=== PATIENT | male | born 1995 | race Caucasian/White ===

== ENCOUNTER 2018-11-04 18:44 | Emergency (ER) | payer OTHER ==
[~2018-11-04] VITALS: Ht 190.5 cm; Wt 83.8 kg
[2018-11-04] MEDS ORDERED: REME15TA PO (19:03)
[2018-11-04] MEDS ORDERED: FLUO40CA PO (19:03)
[2018-11-04 20:00] LABS: MEAN CORPUSCULAR HEMOGLOBIN 29.6 pg (27.0-33.0); MEAN CORPUSCULAR HGB CONC 34.1 g/dl (32.0-36.5); PLATELET COUNT, AUTOMATED 215 10^3/uL (150-450); RED BLOOD COUNT 5.06 10^6/uL (4.30-6.10); WHITE BLOOD COUNT 4.1 10^3/uL (4.0-10.0)
[2018-11-04 20:24] LABS: AMPHETAMINES LEVEL URINE NEGATIVE (NEGATIVE); BARBITURATES URINE NEGATIVE (NEGATIVE); BENZODIAZEPINES URINE NEGATIVE (NEGATIVE); CANNABINOIDS URINE NEGATIVE (NEGATIVE); COCAINE METABOLITE URINE NEGATIVE (NEGATIVE); METHADONE URINE NEGATIVE (NEGATIVE); OPIATES URINE NEGATIVE (NEGATIVE); PHENCYCLIDINE URINE NEGATIVE (NEGATIVE)
[2018-11-04 21:00] LABS: ACETAMINOPHEN LEVEL < 2.0 UG/ML (10.0-30.0); ALBUMIN 4.4 GM/DL (3.2-5.2); ALT/SGPT 35 U/L (12-78); BILIRUBIN,DIRECT 0.1 MG/DL (0.0-0.2); BILIRUBIN,TOTAL 0.4 MG/DL (0.2-1.0); BLOOD UREA NITROGEN 12 MG/DL (7-18); CALCIUM LEVEL 9.6 MG/DL (8.5-10.1); CARBON DIOXIDE LEVEL 26 MEQ/L (21-32); CHLORIDE LEVEL 104 MEQ/L (98-107); CREATININE FOR GFR 0.82 MG/DL (0.70-1.30); GLOMERULAR FILTRATION RATE > 60.0 (>60); GLUCOSE, FASTING 90 MG/DL (70-100); POTASSIUM SERUM 3.9 MEQ/L (3.5-5.1); SALICYLATE LEVEL < 1.7 MG/DL (5.0-30.0); SODIUM LEVEL 140 MEQ/L (136-145); THYROID STIMULATING HORMONE 0.951 uIU/ML (0.358-3.740); TOTAL PROTEIN 8.2 GM/DL (6.4-8.2)
[2018-11-05 00:57] VITALS: BP 110/59
--- NOTE | 2018-11-05 21:18 | ECGEPIP ---
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
== END 2018-11-05 01:02 ==
LOC: M ED 18:44
DX: R45.851 Suicidal ideations (principal); F17.200 Nicotine dependence, unspecified, uncomplicated
CPT/HCPCS: 80048; 80076; 80307; 84443; 85027; 93005; 99284; G0480

== ENCOUNTER 2019-01-07 13:30 | Inpatient (IN) | payer OTHER ==
[~2019-01-07] VITALS: Ht 188 cm; Wt 92.3 kg
[~2019-01-07 13:30] MED LIST: FLUO40CA PO; REME15TA PO
[2019-01-07 14:01] LABS: HEMATOCRIT 44.3 % (42.0-52.0); MEAN CORPUSCULAR HEMOGLOBIN 29.3 pg (27.0-33.0); MEAN CORPUSCULAR HGB CONC 33.9 g/dl (32.0-36.5); MEAN CORPUSCULAR VOLUME 86.5 fl (80.0-96.0); PLATELET COUNT, AUTOMATED 272 10^3/uL (150-450); RED BLOOD COUNT 5.12 10^6/uL (4.30-6.10); WHITE BLOOD COUNT 5.3 10^3/uL (4.0-10.0)
[2019-01-07] MEDS ORDERED: VITA-122 PO (14:07)
[2019-01-07] MEDS ORDERED: TRAZ-163 PO (14:07)
[2019-01-07] MEDS ORDERED: MIRT1TAB16 (14:07)
[2019-01-07] MEDS ORDERED: MIRTAZAPINE 15 MG TAB PO ONE (14:15)
[2019-01-07] MEDS ORDERED: NICOTINE 21MG/24HR 1 EA TRANSDERMAL TD ONE (14:15)
[2019-01-07 14:32] LABS: AMPHETAMINES LEVEL URINE NEGATIVE (NEGATIVE); BARBITURATES URINE NEGATIVE (NEGATIVE); BENZODIAZEPINES URINE NEGATIVE (NEGATIVE); CANNABINOIDS URINE NEGATIVE (NEGATIVE); COCAINE METABOLITE URINE NEGATIVE (NEGATIVE); METHADONE URINE NEGATIVE (NEGATIVE); OPIATES URINE NEGATIVE (NEGATIVE); PHENCYCLIDINE URINE NEGATIVE (NEGATIVE)
[2019-01-07 14:41] LABS: ACETAMINOPHEN LEVEL < 2.0 UG/ML (10.0-30.0); ALBUMIN 4.1 GM/DL (3.2-5.2); ALT/SGPT 48 U/L (12-78); BILIRUBIN,DIRECT < 0.1 MG/DL (0.0-0.2); BILIRUBIN,TOTAL 0.3 MG/DL (0.2-1.0); BLOOD UREA NITROGEN 11 MG/DL (7-18); CALCIUM LEVEL 9.4 MG/DL (8.5-10.1); CARBON DIOXIDE LEVEL 30 MEQ/L (21-32); CHLORIDE LEVEL 104 MEQ/L (98-107); CREATININE FOR GFR 0.95 MG/DL (0.70-1.30); ETHYL ALCOHOL (ETHANOL) < 0.003 % (0.000-0.010); GLOMERULAR FILTRATION RATE > 60.0 (>60); GLUCOSE, FASTING 95 MG/DL (70-100); POTASSIUM SERUM 4.1 MEQ/L (3.5-5.1); SALICYLATE LEVEL < 1.7 MG/DL (5.0-30.0); SODIUM LEVEL 139 MEQ/L (136-145); TOTAL PROTEIN 8.1 GM/DL (6.4-8.2)
[2019-01-07] MEDS ORDERED: MELA3TAB59 PO (16:58)
[2019-01-07] MEDS ORDERED: PROP20TA72 PO (16:58)
[2019-01-07] MEDS ORDERED: MIRT1TAB17 PO (16:58)
[2019-01-07] MEDS ORDERED: IBUPROFEN 400 MG TAB PO PRN (17:30)
[2019-01-07] MEDS ORDERED: traZODone 50 MG TAB PO PRN (17:30)
[2019-01-07] MEDS ORDERED: MOM 30ML SUSPENSION UDC PO PRN (17:30)
[2019-01-07] MEDS ORDERED: MAALOX 30 ML SUSP *UDC PO PRN (17:30)
[2019-01-07] MEDS: traZODone 100 MG TAB PO PRN (22:25)
[2019-01-07] MEDS: PROPRANOLOL 10 MG TAB PO PRN (22:26)
[2019-01-07 22:33] VITALS: BP 109/50
[2019-01-08 06:22] VITALS: BP 125/55
[2019-01-08] MEDS ORDERED: INFLUENZA QUADRIVALENT PF VACCINE 0.5ML SYRINGE (90686) IM ONE (09:00)
[2019-01-08] MEDS: VITAMIN D 1,000 INTERNATIONAL UNITS TABLET PO SCH (10:00)
[2019-01-08] MEDS: NICOTINE 21MG/24HR 1 EA TRANSDERMAL TD PRN (10:56)
[2019-01-08] MEDS: BACITRACIN OINT 30GM TOP SCH ×2 (12:32→20:13)
--- NOTE | 2019-01-08 13:41 | MHHPEPDOC ---
General Date Of Admission: Jan 08, 2019 Legal Status: 9.39 Chief Complaint "My doctor thought I was at risk and sent me here." History of Present Illness HISTORY OF THE PRESENT ILLNESS: Patient is a 23 -year-old , AD, male, with a history of depression and anxiety, one previous suicidal gesture 10/2018 with admission [facility] who was sent by EMS after he was seen for scheduled appt at [facility] due to thoughts of SI with plan to stab himself for the past 3-4 days. In the ED pt continued to endorse SI with plan to stab himself, denied any known triggers other than stating "I'm tired of feeling this way." Per ED when pt reported to ED 10/2018 prior to transfer to [place] report suicidal gesture and HI and has a diary of illustrations of ways to kill himself and others. Was sent from [place] to [place] for care home treatment for 6wks that he found beneficial. He reported increase alcohol use due to depression and SI in the ED. He denied HI, hallucinations, and delusions. Past Psychiatric History Previous Psychiatric Diagnosis: depression, anxiety first diagnosed in high school Previous Psychiatric Admissions: 1 admission [facility] s/p suicidal gesture 10/2018 by tying a noose around his neck but did not follow thru and attempt to hang himself. Admission [place] after [place] for 6wks for manager intermediate treatment that per [facility] records pt found helpful. Suicide Attempts:refer above, SA by hanging in [employer] Psychiatric Follow-up: [facility] Psychiatric medications: trazodone 100mg qhs, remeron 45mg qhs, inderal 20mg tid, Melatonin 3mg qhs, was on zoloft in college but stopped it to join the [employer] per [facility] records Past Medical History Medical Problems denies Head Injury: No Seizures: No Hospitalizations: No Surgeries: No Family Medical/Psychiatric HX Medical Problems noncontributory Psychiatric Disorders: Yes (mother - depressed, states nothing (meds) helped her) Addiction: No Suicide Attemps/Completions: No Addiction History denies Social History Childhood: born and raised in [place], 2 parent home, 1 younger sister, good childhood Abuse/Trauma:denies Current Living Situation: [employer] Education: GED, 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 Employment: [employer] Social Support: family Legal: kids Marital: single, never , no kids Mental Status Examination General Appearance: well groomed, appears stated age, hospital scubs/clothing Build: average, tall Demeanor: withdrawn Eye Contact: poor Activity: slowed Behavior: cooperative, loss of interests, anhedonia, withdrawn Speech: clear, low in volume, non-spontaneous Mood: depressed (very) Mood "Nothing helps just let me go" Affect: constricted, flat, congruent Thought Process: logical/linear, depressed, slow, intact, other (intact hopeless, negative cognitive distortions) Thought Content (Delusions): other (continues to want to dies even though denies he will act on it, denies HI, denies AVH) Thought Content (Other): other (hopeless that nothing will help and he'll always be depressed) Perception (Hallucinations): none reported Perception (Other): none reported Cognition (Impairment of): none reported Cognition(Intelligence Est.): average Oriented: Awake, Alert, Oriented times three Insight: poor (very) Judgment: Poor (very) Psychosis: Denies Diagnoses 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 nothing works" regarding treatment. Pt states he's tried everything and nothing works, admits he feels hopeless and wants to ." That he doesn't need to stay b/c it doesn't work "this is who I am." Pt is very withdrawn, depressed, and hopeless and states he needs to be d/c even though he wants to b/c nothing will help and denies he'll actively try to harm himself. His insight and judgement are very poor. He names a number of SSRI medications he's tried in the past that weren't helpful. Asked if he's ever taken effexor xr and denies, has never tried an antipsychotic as antidepressant augmentor before. Spoke with pt about start effexor xr for depression with abilify 5mg qhs as an augmentor, risks benefits discussed and agreeable. Endorses poor concentration, energy (no longer runs "b/c I don't feel like it), anhedonia, avolition, negative cognitive distortions, and internal irritability. Denies hallucinations, delusions. Denies HI. Feels safe here. Highly encouraged to go to groups to learn coping skills. Initial Treatment Plan 1. Patient was admitted on a 939 status. 2. Complete history was obtained. 3. With patients permission, family will be contacted and database will be expanded. 4. Patients medication regimen will be reviewed and changed accordingly. 5. Patient will be provided with protected environment. 6. Patient will be treated with individual, group, and milieu therapies. 7. Patient will receive supportive psych-education. 8. Discharge planning will commence immediately. 9. Outpatient follow-up treatment will be strongly recommended. 10. The initial treatment plan will focus initially on: * Depression. * Risk for suicide. 11. effexor xr 75mg daily, abilify 5mg qhs ESTIMATED LENGTH OF STAY: 7-10 DAYS. TIME SPENT COUNSELING AND COORDINATING INITIAL CARE: 60 minutes. Vital Signs Vital Signs Date Time Temp Pulse Resp B/P (MAP) Pulse Ox O2 Delivery O2 Flow Rate FiO2 01/08/19 06:22 98.3 73 12 125/55 (78) Room Air 01/07/19 22:33 100 Laboratory Data 24H Labs Laboratory Tests 2 01/07/19 13:43: Urine Opiates Screen NEGATIVE, Urine Methadone Screen NEGATIVE, Urine Barbiturates Screen NEGATIVE, Urine Phencyclidine Screen NEGATIVE, Urine Amphetamines Screen NEGATIVE, Urine Benzodiazepines Screen NEGATIVE, Urine Cocaine Metabolite Screen NEGATIVE, Urine Cannabinoids Screen NEGATIVE 01/07/19 13:46: Anion Gap 5L, Glomerular Filtration Rate > 60.0, Calcium Level 9.4, Total Bilirubin 0.3, Direct Bilirubin < 0.1, Aspartate Amino Transf (AST/SGOT) 30, Alanine Aminotransferase (ALT/SGPT) 48, Alkaline Phosphatase 105, Total Protein 8.1, Albumin 4.1, Albumin/Globulin Ratio 1.03, Thyroid Stimulating Hormone (TSH) 1.590, Salicylates Level < 1.7L, Acetaminophen Level < 2.0L, Ethyl Alcohol Level < 0.003 01/07/19 13:47: Nucleated Red Blood Cells % (auto) 0.0 CBC/BMP Laboratory Tests 01/07/19 13:46 01/07/19 13:47 Medications Scheduled Cholecalciferol (Vitamin D3) (Vitamin D3) 1,000 Unit Tablet, 1,000 UNIT PO DAILY, (Reported) Melatonin (Melatonin) 3 Mg Tablet, 9 MG PO QHS, (Reported) Mirtazapine (Mirtazapine) 45 Mg Tab.rapdis, 90 MG PO QHS, (Reported) Propranolol HCl (Propranolol HCl) 20 Mg Tablet, 20 MG PO TID, (Reported) Trazodone HCl (Trazodone HCl) 100 Mg Tablet, 100 MG PO QHS, (Reported) Allergies Coded Allergies: No Known Allergies (Unverified , 11/04/18) MIGUEL A ALMANZAR DO Jan 08, 2019 13:40
[2019-01-08] MEDS ORDERED: VENLAFAXINE **XR** 75MG CAPSULE PO ONE (13:45)
[2019-01-08 16:15] VITALS: BP 113/55
[2019-01-08] MEDS: traZODone 100 MG TAB PO PRN (20:16)
--- NOTE | 2019-01-08 20:36 | HPE ---
DATE OF ADMISSION: 01/07/2019 DATE OF SERVICE: 01/08/2019 CHIEF COMPLAINT: Depression. HISTORY OF PRESENT ILLNESS: 23-year-old male with a history of smoking a half of a pack per day for the past 6 months, drinks V[place]ctor [place], half of a bottle on weekends, admitted for depression to the inpatient mental health unit. He currently denies any fever or chills and admits to a 30 pound weight gain, which is unintentional. No changes in appetite. He also complains of insomnia, usually sleeps on a bench about 4 hours a day. No vomiting, abdominal pain, dysuria, urgency, frequency, upper or lower extremity weakness. No shortness of breath, chest pain, pressure, tightness, cough, diplopia, changes in vision, sore throat, ear pain, ear discharge. PAST MEDICAL HISTORY: None. PAST SURGICAL HISTORY: None. HOME MEDICATIONS: - vitamin D3 1000 units daily - propranolol 20 three times a day - trazodone 100 mg at night - melatonin 9 mg at night - mirtazapine 90 mg at night ALLERGIES: No known drug allergies. FAMILY HISTORY: Mother alive and well, age 39. Father 45, alive and well. Sister 18 years old, no medical problems. REVIEW OF SYSTEMS: As per history of present illness. 12-point system otherwise negative. PHYSICAL EXAMINATION: VITAL SIGNS: Temperature 98.3, pulse 73, respiratory rate 20, blood pressure 125/55, 100% on room air. GENERAL: Awake, alert, oriented times three. Answering questions appropriately. Anicteric sclerae. No jaundice. No use of respiratory accessory muscles. Extraocular muscles are intact. Tongue is midline. Uvula is midline. No cervical lymphadenopathy, thyromegaly or cervical lymphadenopathy. LUNGS: Clear to auscultation. No wheezing, rales or rhonchi. HEART: S1, S2. Sinus rhythm. No murmurs, rubs or gallops. ABDOMEN: Soft, nontender, nondistended. Positive bowel sounds times four quadrants. No hepatosplenomegaly or abdominal bruits. EXTREMITIES: No cyanosis, clubbing or any pitting edema. SKIN: Lacerations on the left forearm. ASSESSMENT AND PLAN: This is a 23-year-old male admitted to inpatient mental health unit with depression and self harm but cutting. Smokes cigarettes and socially drinks alcohol, half of a bottle of V[place] every weekend. 1. Active tobacco use. The patient has been given a nicotine patch. Smoking cessation counseling has been provided. 2. Suicidal ideation and depression. Managed by psychiatrist. 3. Self harm by cutting with lacerations on the left forearm. Topical bacitracin. No signs of cellulitis at this time. 4. Insomnia. Defer to psychiatrist for medications. 5. Recent weight gain. Normal TSH at 1.59. Weight loss as outpatient. MARTÍN
[2019-01-09 06:55] VITALS: BP 109/59
[2019-01-09] MEDS: VENLAFAXINE **XR** 75MG CAPSULE PO SCH (08:06)
[2019-01-09] MEDS: VITAMIN D 1,000 INTERNATIONAL UNITS TABLET PO SCH (08:06)
[2019-01-09] MEDS: BACITRACIN OINT 30GM TOP SCH ×2 (08:06→20:18)
--- NOTE | 2019-01-09 10:35 | MHIPNPDOC ---
[facility] Progress Note Progress Note DATE OF SERVICE: 01/09/19 HISTORY: Patient is a 23 -year-old , AD, male, with a history of depression and anxiety, one previous suicidal gesture 10/2018 with admission [facility] who was sent by EMS after he was seen for scheduled appt at [facility] due to thoughts of SI with plan to stab himself for the past 3-4 days. In the ED pt continued to endorse SI with plan to stab himself, denied any known triggers other than stating "I'm tired of feeling this way." Per ED when pt reported to ED 10/2018 prior to transfer to [place] report suicidal gesture and HI and has a diary of illustrations of ways to kill himself and others. Was sent from [place] to [place] for long-term treatment for 6wks that he found beneficial. He reported increase alcohol use due to depression and SI in the ED. He denied HI, hallucinations, and delusions. Pt seen at states he's here b/c "I told my outpatient provider that last Monday I going to slit my wrist b/c I'm done with everything... nothing works" regarding treatment. Pt states he's tried everything and nothing works, admits he feels hopeless and wants to ." That he doesn't need to stay b/c it doesn't work "this is who I am." Pt is very withdrawn, depressed, and hopeless and states he needs to be d/c even though he wants to b/c nothing will help and denies he'll actively try to harm himself. His insight and judgement are very poor. He names a number of SSRI medications he's tried in the past that weren't helpful. Asked if he's ever taken effexor xr and denies, has never tried an antipsychotic as antidepressant augmentor before. Spoke with pt about start effexor xr for depression with abilify 5mg qhs as an augmentor, risks benefits discussed and agreeable. Endorses poor concentration, energy (no longer runs "b/c I don't feel like it), anhedonia, avolition, negative cognitive distortions, and internal irritability. Denies hallucinations, delusions. Denies HI. Feels safe here. Highly encouraged to go to groups to learn coping skills. VITAL SIGNS: See below. NEW TEST RESULTS: See below. CURRENT MEDICATIONS: See below. MENTAL STATUS EXAMINATION: No change General Appearance: well groomed, appears stated age, hospital scrubs/clothing Build: average, tall Demeanor: withdrawn Eye Contact: poor Activity: slowed Behavior: cooperative, loss of interests, anhedonia, withdrawn Speech: clear, low in volume, non-spontaneous Mood: depressed (very) Mood "Nothing helps just let me go" Affect: constricted, flat, congruent Thought Process: logical/linear, depressed, slow, intact, other (intact hopeless, negative cognitive distortions) Thought Content (Delusions): other (continues to want to dies even though denies he will act on it, denies HI, denies AVH) Thought Content (Other): other (hopeless that nothing will help and he'll always be depressed) Perception (Hallucinations): none reported Perception (Other): none reported Cognition (Impairment of): none reported Cognition(Intelligence Est.): average Oriented: Awake, Alert, Oriented times three Insight: poor (very) Judgment: Poor (very) Psychosis: Denies DIAGNOSES: 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 Denies that he's attending groups as "they were playing games" and encouraged to go to all of them for improvement in mood and anhedonia (experience los), prevent isolation and did not appear like he wanted to go at all trying to get out of going. 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 Per d/c todd pt has told his mother that he planned to commit suicide in near future after a big cross country race and that his Angel found a huge knife in his barracks room that pt had but stated he wasn't going to use to harm himself b/c it'd been blessed with holy water that would prevent him from going to hell. States he's tolerating his meds and will continue to wait for improvement in symptoms with continued use. Per d/c todd pt was on abilify at [place] that appeared beneficial but was discontinued prior d/c for unknown reason. Pt continues to appear to want to and ECT may be very beneficial for him as it is only effective treatment for irretractable SI. [facility] to look into referring pt to ECT. He denies HI, hallucinations, delusions. Pt feels safe here. MANAGEMENT PLAN: medications effexor xr 75mg daily abilify 5mg qhs TIME SPENT: 30 minutes. Vital Signs Vital Signs Date Time Temp Pulse Resp B/P (MAP) Pulse Ox O2 Delivery O2 Flow Rate FiO2 01/09/19 06:55 99.3 81 14 109/59 (76) 01/08/19 06:22 Room Air 01/07/19 22:33 100 Current Medications Current Medications Medications (Trade) Dose Ordered Sig/Stephanie Route PRN Reason Start Time Stop Time Status Last Admin Dose Admin Al Hydrox/Mg Hydrox/Simethicone (Mylanta) 30 ml Q4HP PRN PO HEARTBURN/INDIGESTION 01/07/19 17:30 Aripiprazole (AbiLIFY) 5 mg QHS PO 01/08/19 21:00 01/08/19 20:13 Bacitracin (Bacitracin Oint) X5 DAYS TO LEFT ARM LACERATIONS. BID TOP 01/08/19 09:00 01/12/19 21:01 01/09/19 08:06 Home Med (Med Rec Complete!) ASDIRECTED XX 01/07/19 17:00 01/07/19 17:01 DC Ibuprofen (Advil) 400 mg Q6HP PRN PO PAIN 01/07/19 17:30 Magnesium Hydroxide (Milk Of Magnesia) 30 ml DAILYPRN PRN PO CONSTIPATION 01/07/19 17:30 Nicotine (Nicoderm Cq 21mg) 1 patch DAILYPRN PRN TD NICOTINE WITHDRAWAL 01/08/19 09:00 01/08/19 10:56 Propranolol HCl (Inderal) 10 mg Q8HP PRN PO ANXIETY 01/07/19 20:45 01/07/19 22:26 Trazodone HCl (Desyrel) 50 mg QHSP PRN PO INSOMNIA 01/07/19 17:30 01/07/19 20:36 DC Trazodone HCl (Desyrel) 100 mg QHSP PRN PO INSOMNIA 01/07/19 20:45 01/08/19 20:16 Venlafaxine HCl (Effexor Xr) 75 mg DAILY PO 01/09/19 09:00 01/09/19 08:06 Vitamin D (Vitamin D) 1,000 units DAILY PO 01/08/19 09:00 01/09/19 08:06 Allergies Coded Allergies: No Known Allergies (Unverified , 11/04/18) MIGUEL A ALMANZAR DO Jan 09, 2019 10:35 am
[2019-01-09 16:44] VITALS: BP 133/57
[2019-01-09] MEDS: traZODone 100 MG TAB PO PRN (20:17)
[2019-01-10 05:53] VITALS: BP 117/54
[2019-01-10] MEDS: NICOTINE 21MG/24HR 1 EA TRANSDERMAL TD PRN (06:51)
[2019-01-10] MEDS: VENLAFAXINE **XR** 75MG CAPSULE PO SCH (08:34)
[2019-01-10] MEDS: BACITRACIN OINT 30GM TOP SCH ×2 (08:34→20:27)
[2019-01-10] MEDS: VITAMIN D 1,000 INTERNATIONAL UNITS TABLET PO SCH (08:34)
--- NOTE | 2019-01-10 09:50 | MHIPNPDOC ---
[facility] Progress Note Progress Note Inpatient Progress Note Carmelo Sanchez MRN: N/A Date of : N/A Date of Service: 01/10/2019 History of Present Illness 23-year-old man with a history of suicide attempts, overdoses who had presented to [facility] after reporting suicidal ideation and was admitted out of an abundance of caution. Interval History The patient is met with today. He appears sad that he is here on Thanksgiving and asked if can be discharged. I explained to the patient that that would not be possible as he is currently under the care of his primary provider, Dr. Hu. He reports his depression has been improving and that he is unsure as to why he is still hear. No major behavioral problems overnight and no problems attending the treatment, going to groups regularly. Review Of Systems General: Denies fever or appetite changes Cardiovascular: Denies Chest pain or palpations GI: Denies Nausea, vomiting, or bowel changes Respiratory: Denies shortness of breath or cough Neuro: Denies dizziness, tremors Derm: Denies any rashes or pruritus : Denies any dysuria or urinary problems MSK: Denies any muscle tightness or stiffness HEENT: Denies any vision changes or headaches Heme/Lymph: denies any bruising or bleeding Endo: denies any cold/heat intolerance or water intake changes Psychotherapy None on this visit. Vital Signs Reviewed. Mental Status Examination General: Well dressed with good hygiene Speech: Spontaneous and fluid Thought processes: Linear and logical MSK: Smooth and coordinated gait, no signs of tremors or involuntary orofacial movements Thought content: Future orientated Abstract reasoning, and computation: Intact Description of associations: Intact Description of abnormal or psychotic thoughts: Denies any suicidal or homicidal ideation. Denies any auditory or visual hallucinations. Does not appear to be responding to internal stimuli. Does not appear to be endorsing any bizarre or paranoid ideation. Judgment: fair Insight: fair Orientation: Alert and orientated 3 Cognition: Grossly normal Recent and remote memory: Intact Attention span and concentration: Intact Fund of knowledge: Adequate Mood: "okay" Affect: Euthymic with a full range Diagnoses MDD, severe without psychosis. Assessment and Plan MDD: Continue current medications. Disposition Patient will need a further inpatient admission for continued safety planning and disposition. Time Spent 50 minutes [id number]. Vital Signs Vital Signs Date Time Temp Pulse Resp B/P (MAP) Pulse Ox O2 Delivery O2 Flow Rate FiO2 01/10/19 05:53 98.1 78 18 117/54 (75) 01/09/19 16:44 97 Room Air Current Medications Current Medications Medications (Trade) Dose Ordered Sig/Stephanie Route PRN Reason Start Time Stop Time Status Last Admin Dose Admin Al Hydrox/Mg Hydrox/Simethicone (Mylanta) 30 ml Q4HP PRN PO HEARTBURN/INDIGESTION 01/07/19 17:30 Aripiprazole (AbiLIFY) 5 mg QHS PO 01/08/19 21:00 01/09/19 20:17 Bacitracin (Bacitracin Oint) X5 DAYS TO LEFT ARM LACERATIONS. BID TOP 01/08/19 09:00 01/12/19 21:01 01/10/19 08:34 Home Med (Med Rec Complete!) ASDIRECTED XX 01/07/19 17:00 01/07/19 17:01 DC Ibuprofen (Advil) 400 mg Q6HP PRN PO PAIN 01/07/19 17:30 Magnesium Hydroxide (Milk Of Magnesia) 30 ml DAILYPRN PRN PO CONSTIPATION 01/07/19 17:30 Nicotine (Nicoderm Cq 21mg) 1 patch DAILYPRN PRN TD NICOTINE WITHDRAWAL 01/08/19 09:00 01/10/19 06:51 Propranolol HCl (Inderal) 10 mg Q8HP PRN PO ANXIETY 01/07/19 20:45 01/07/19 22:26 Trazodone HCl (Desyrel) 50 mg QHSP PRN PO INSOMNIA 01/07/19 17:30 01/07/19 20:36 DC Trazodone HCl (Desyrel) 100 mg QHSP PRN PO INSOMNIA 01/07/19 20:45 01/09/19 20:17 Venlafaxine HCl (Effexor Xr) 75 mg DAILY PO 01/09/19 09:00 01/10/19 08:34 Vitamin D (Vitamin D) 1,000 units DAILY PO 01/08/19 09:00 01/10/19 08:34 Allergies Coded Allergies: No Known Allergies (Unverified , 11/04/18) MARK LITTLE DO Jan 10, 2019 09:50
[2019-01-10 16:11] VITALS: BP 133/71
[2019-01-10] MEDS: traZODone 100 MG TAB PO PRN (20:05)
[2019-01-11 06:31] VITALS: BP 128/69
[2019-01-11] MEDS: NICOTINE 21MG/24HR 1 EA TRANSDERMAL TD PRN (06:35)
[2019-01-11] MEDS: BACITRACIN OINT 30GM TOP SCH ×2 (08:26→20:00)
[2019-01-11] MEDS: VITAMIN D 1,000 INTERNATIONAL UNITS TABLET PO SCH (08:27)
[2019-01-11] MEDS: VENLAFAXINE **XR** 75MG CAPSULE PO SCH (08:27)
--- NOTE | 2019-01-11 10:03 | MHIPNPDOC ---
[facility] Progress Note Progress Note DATE OF SERVICE: 01/11/19 HISTORY: Patient is a 23 -year-old , AD, male, with a history of depression and anxiety, one previous suicidal gesture 10/2018 with admission [facility] who was sent by EMS after he was seen for scheduled appt at [facility] due to thoughts of SI with plan to stab himself for the past 3-4 days. In the ED pt continued to endorse SI with plan to stab himself, denied any known triggers other than stating "I'm tired of feeling this way." Per ED when pt reported to ED 10/2018 prior to transfer to [place] report suicidal gesture and HI and has a diary of illustrations of ways to kill himself and others. Was sent from [place] to [place] for long term treatment for 6wks that he found beneficial. He reported increase alcohol use due to depression and SI in the ED. He denied HI, hallucinations, and delusions. Pt seen at states he's here b/c "I told my outpatient provider that last Monday I going to slit my wrist b/c I'm done with everything... nothing works" regarding treatment. Pt states he's tried everything and nothing works, admits he feels hopeless and wants to ." That he doesn't need to stay b/c it doesn't work "this is who I am." Pt is very withdrawn, depressed, and hopeless and states he needs to be d/c even though he wants to b/c nothing will help and denies he'll actively try to harm himself. His insight and judgement are very poor. He names a number of SSRI medications he's tried in the past that weren't helpful. Asked if he's ever taken effexor xr and denies, has never tried an antipsychotic as antidepressant augmentor before. Spoke with pt about start effexor xr for depression with abilify 5mg qhs as an augmentor, risks benefits discussed and agreeable. Endorses poor concentration, energy (no longer runs "b/c I don't feel like it), anhedonia, avolition, negative cognitive distortions, and internal irritability. Denies hallucinations, delusions. Denies HI. Feels safe here. Highly encouraged to go to groups to learn coping skills. VITAL SIGNS: See below. NEW TEST RESULTS: See below. CURRENT MEDICATIONS: See below. MENTAL STATUS EXAMINATION: No change General Appearance: well groomed, appears stated age, hospital scrubs/clothing Build: average, tall Demeanor: withdrawn Eye Contact: poor Activity: slowed Behavior: cooperative, loss of interests, anhedonia, withdrawn Speech: clear, low in volume, non-spontaneous Mood: depressed (very) Mood "Nothing helps just let me go" Affect: constricted, flat, congruent Thought Process: logical/linear, depressed, slow, intact, other (intact hopeless, negative cognitive distortions) Thought Content (Delusions): other (continues to want to dies even though denies he will act on it, denies HI, denies AVH) Thought Content (Other): other (hopeless that nothing will help and he'll always be depressed) Perception (Hallucinations): none reported Perception (Other): none reported Cognition (Impairment of): none reported Cognition(Intelligence Est.): average Oriented: Awake, Alert, Oriented times three Insight: poor (very) Judgment: Poor (very) Psychosis: Denies DIAGNOSES: 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 Is attending groups now but admits he doesn't like them. Encouraged to continue to go though to prevent isolation and that overtime they should be helpful to him. Asked him about his futures plans and stated he want to be a seat cover cutter as it's low stress as he working toward becoming an Exorcist. Appeared to not know that exorcists are Furniture Repairer and that to become a medical reviewer he would need to go to school to become a medical reviewer. Appears to either have just thought of being an exorcist here or maybe related with fascination of life after or something he is not stating, or just a imaginary idea. Per d/c store planner pt has told his mother that he planned to commit suicide in near future after a big cross country race and that his Angel found a huge knife in his barracks room that pt had but stated he wasn't going to use to harm himself b/c it'd been blessed with holy water that would prevent him from going to hell. States he's tolerating his meds and will continue to wait for improvement in symptoms with continued use. Per d/c store planner pt was on abilify at [place] that appeared beneficial but was discontinued prior d/c for unknown reason. Pt continues to appear to want to and ECT may be very beneficial for him as it is only effective treatment for irretractable SI. [facility] to look into referring pt to ECT. He denies HI, hallucinations, delusions. Pt feels safe here. MANAGEMENT PLAN: increase effexor xr medications effexor xr 150mg daily abilify 5mg qhs TIME SPENT: 30 minutes. Vital Signs Vital Signs Date Time Temp Pulse Resp B/P (MAP) Pulse Ox O2 Delivery O2 Flow Rate FiO2 01/11/19 06:31 99.2 81 18 128/69 (88) 01/09/19 16:44 97 Room Air Current Medications Current Medications Medications (Trade) Dose Ordered Sig/Stephanie Route PRN Reason Start Time Stop Time Status Last Admin Dose Admin Al Hydrox/Mg Hydrox/Simethicone (Mylanta) 30 ml Q4HP PRN PO HEARTBURN/INDIGESTION 01/07/19 17:30 Aripiprazole (AbiLIFY) 5 mg QHS PO 01/08/19 21:00 01/10/19 20:05 Bacitracin (Bacitracin Oint) X5 DAYS TO LEFT ARM LACERATIONS. BID TOP 01/08/19 09:00 01/12/19 21:01 01/10/19 08:34 Home Med (Med Rec Complete!) ASDIRECTED XX 01/07/19 17:00 01/07/19 17:01 DC Ibuprofen (Advil) 400 mg Q6HP PRN PO PAIN 01/07/19 17:30 Magnesium Hydroxide (Milk Of Magnesia) 30 ml DAILYPRN PRN PO CONSTIPATION 01/07/19 17:30 Nicotine (Nicoderm Cq 21mg) 1 patch DAILYPRN PRN TD NICOTINE WITHDRAWAL 01/08/19 09:00 01/11/19 06:35 Propranolol HCl (Inderal) 10 mg Q8HP PRN PO ANXIETY 01/07/19 20:45 01/07/19 22:26 Trazodone HCl (Desyrel) 50 mg QHSP PRN PO INSOMNIA 01/07/19 17:30 01/07/19 20:36 DC Trazodone HCl (Desyrel) 100 mg QHSP PRN PO INSOMNIA 01/07/19 20:45 01/10/19 20:05 Venlafaxine HCl (Effexor Xr) 75 mg DAILY PO 01/09/19 09:00 01/11/19 08:27 Vitamin D (Vitamin D) 1,000 units DAILY PO 01/08/19 09:00 01/11/19 08:27 Allergies Coded Allergies: No Known Allergies (Unverified , 11/04/18) MIGUEL A ALMANZAR DO Jan 11, 2019 9:15 am
[2019-01-11] MEDS ORDERED: VENLAFAXINE **XR** 75MG CAPSULE PO ONE (10:15)
[2019-01-11] MEDS ORDERED: hydrOXYzine 25 MG TAB PO PRN (13:00)
[2019-01-11] MEDS: PROPRANOLOL 10 MG TAB PO PRN (14:50)
[2019-01-11 16:39] VITALS: BP 130/64
[2019-01-11] MEDS: traZODone 100 MG TAB PO PRN (20:00)
[2019-01-12 05:46] VITALS: BP 113/55
[2019-01-12] MEDS: NICOTINE 21MG/24HR 1 EA TRANSDERMAL TD PRN (08:30)
[2019-01-12] MEDS: VITAMIN D 1,000 INTERNATIONAL UNITS TABLET PO SCH (08:30)
[2019-01-12] MEDS: VENLAFAXINE **XR** 75MG CAPSULE PO SCH (08:30)
[2019-01-12] MEDS: BACITRACIN OINT 30GM TOP SCH ×2 (08:32→20:20)
[2019-01-12 16:16] VITALS: BP 125/68
[2019-01-12] MEDS: traZODone 100 MG TAB PO PRN (20:21)
[2019-01-13 05:59] VITALS: BP 132/67
[2019-01-13] MEDS: VENLAFAXINE **XR** 75MG CAPSULE PO SCH (08:16)
[2019-01-13] MEDS: VITAMIN D 1,000 INTERNATIONAL UNITS TABLET PO SCH (08:17)
[2019-01-13] MEDS: NICOTINE 21MG/24HR 1 EA TRANSDERMAL TD PRN (08:17)
[2019-01-13] MEDS: PROPRANOLOL 10 MG TAB PO PRN (12:28)
[2019-01-13 15:37] VITALS: BP 128/58
[2019-01-13] MEDS: traZODone 100 MG TAB PO PRN (20:29)
[2019-01-14 06:22] VITALS: BP 109/52
[2019-01-14] MEDS: VENLAFAXINE **XR** 75MG CAPSULE PO SCH (08:01)
[2019-01-14] MEDS: NICOTINE 21MG/24HR 1 EA TRANSDERMAL TD PRN (08:01)
[2019-01-14] MEDS: VITAMIN D 1,000 INTERNATIONAL UNITS TABLET PO SCH (08:01)
--- NOTE | 2019-01-14 10:33 | MHIPNPDOC ---
[facility] Progress Note Progress Note DATE OF SERVICE: 01/14/19 HISTORY: Patient is a 23 -year-old , AD, male, with a history of depression and anxiety, one previous suicidal gesture 10/2018 with admission [facility] who was sent by EMS after he was seen for scheduled appt at [facility] due to thoughts of SI with plan to stab himself for the past 3-4 days. In the ED pt continued to endorse SI with plan to stab himself, denied any known triggers other than stating "I'm tired of feeling this way." Per ED when pt reported to ED 10/2018 prior to transfer to [place] report suicidal gesture and HI and has a diary of illustrations of ways to kill himself and others. Was sent from [place] to [place] [facility] 6w[facility] that he found beneficial. He reported increase alcohol use due to depression and SI in the ED. He denied HI, hallucinations, and delusions. Pt seen at states he's here b/c "I told my outpatient provider that last Monday I going to slit my wrist b/c I'm done with everything... nothing works" regarding treatment. Pt states he's tried everything and nothing works, admits he feels hopeless and wants to ." That he doesn't need to stay b/c it doesn't work "this is who I am." Pt is very withdrawn, depressed, and hopeless and states he needs to be d/c even though he wants to b/c nothing will help and denies he'll actively try to harm himself. His insight and judgement are very poor. He names a number of SSRI medications he's tried in the past that weren't helpful. Asked if he's ever taken effexor xr and denies, has never tried an antipsychotic as antidepressant augmentor before. Spoke with pt about start effexor xr for depression with abilify 5mg qhs as an augmentor, risks benefits discussed and agreeable. Endorses poor concentration, energy (no longer runs "b/c I don't feel like it), anhedonia, avolition, negative cognitive distortions, and internal irritability. Denies hallucinations, delusions. Denies HI. Feels safe here. Highly encouraged to go to groups to learn coping skills. VITAL SIGNS: See below. NEW TEST RESULTS: See below. CURRENT MEDICATIONS: See below. MENTAL STATUS EXAMINATION: No change General Appearance: well groomed, appears stated age, hospital scrubs/clothing Build: average, tall Demeanor: very anxious and fidgety Eye Contact: poor Activity: slowed Behavior: cooperative, very anxious Speech: clear, low in volume, non-spontaneous Mood: depressed (very), very anxious Mood "They're aren't any groups today... it's making me anxious" Affect: very anxious, improved range, congruent Thought Process: logical/linear, very depressed, slow, intact, other (intact hopeless, negative cognitive distortions, believes he deserves to be punished b/c he's a horrible person) Thought Content (Delusions): other (continues to want to dies even though denies he will act on it, denies HI, denies AVH) Thought Content (Other): other (hopeless that nothing will help and he'll always be depressed) Perception (Hallucinations): none reported Perception (Other): none reported Cognition (Impairment of): none reported Cognition(Intelligence Est.): average Oriented: Awake, Alert, Oriented times three Insight: poor (very) Judgment: Poor (very) Psychosis: Denies DIAGNOSES: Major Depressive D/O severe recurrent with out psychotic features (Unipolar type) ASSESSMENT:Pt seen appearing extremely anxious due to there not being any groups today. Admits that it is very anxiety provoking for him when daily activities change spontaneously. Asking for paper and a sharpie marker to draw as he states he enjoys drawing and it aids his anxiety. States he draws angels and demons. Per d/c operations planner, pt reported to self harm thru whipping himself and cutting himself due to guilt like feelings related to his ex-girlfriend's ex- boyfriend killing himself b/c she was cheating on her ex-boyfriend with the pt who blames himself. Pt continues to have very negative cognitive distortions of himself and believes he is a horrible person that needs to be punished. He's very religiously focused in his beliefs as to why he must punish himself. Appears to have shown some range improvement though with medications and groups and is having more future oriented thoughts, now wanting to be a safety aid when he gets out of the . Monday he wanted to be an exorcist. Per d/c operations planner pt has told his mother that he planned to commit suicide in near future after a big cross country race and that his Angel found a huge knife in his barracks room that pt had but stated he wasn't going to use to harm himself b/c it'd been blessed with holy water that would prevent him from going to hell. States he's tolerating his meds and will continue to wait for improvement in symptoms with continued use. Per d/c operations planner pt was on abilify at [place] that appeared beneficial but was discontinued prior d/c for unknown reason. Recommend chcf treatment at [place] over ECT as pt is showing some improvement in symptoms with his current meds and therapy. He denies HI, hallucinations, delusions. Pt feels safe here. MANAGEMENT PLAN: start vistaril prn medications effexor xr 150mg daily abilify 5mg qhs vistaril 50mg q6hr prn anxiety TIME SPENT: 30 minutes. Vital Signs Vital Signs Date Time Temp Pulse Resp B/P (MAP) Pulse Ox O2 Delivery O2 Flow Rate FiO2 01/14/19 06:22 98.6 94 16 109/52 (71) Room Air 01/09/19 16:44 97 Current Medications Current Medications Medications (Trade) Dose Ordered Sig/Stephanie Route PRN Reason Start Time Stop Time Status Last Admin Dose Admin Al Hydrox/Mg Hydrox/Simethicone (Mylanta) 30 ml Q4HP PRN PO HEARTBURN/INDIGESTION 01/07/19 17:30 Aripiprazole (AbiLIFY) 5 mg QHS PO 01/08/19 21:00 01/13/19 20:30 Bacitracin (Bacitracin Oint) X5 DAYS TO LEFT ARM LACERATIONS. BID TOP 01/08/19 09:00 01/12/19 21:01 DC 01/10/19 08:34 Home Med (Med Rec Complete!) ASDIRECTED XX 01/07/19 17:00 01/07/19 17:01 DC Hydroxyzine HCl (Atarax) 25 mg Q4HP PRN PO ANXIETY/AGITATION 01/11/19 13:00 01/14/19 08:01 Ibuprofen (Advil) 400 mg Q6HP PRN PO PAIN 01/07/19 17:30 Magnesium Hydroxide (Milk Of Magnesia) 30 ml DAILYPRN PRN PO CONSTIPATION 01/07/19 17:30 Nicotine (Nicoderm Cq 21mg) 1 patch DAILYPRN PRN TD NICOTINE WITHDRAWAL 01/08/19 09:00 01/14/19 08:01 Propranolol HCl (Inderal) 10 mg Q8HP PRN PO ANXIETY 01/07/19 20:45 01/13/19 12:28 Trazodone HCl (Desyrel) 50 mg QHSP PRN PO INSOMNIA 01/07/19 17:30 01/07/19 20:36 DC Trazodone HCl (Desyrel) 100 mg QHSP PRN PO INSOMNIA 01/07/19 20:45 01/13/19 20:29 Venlafaxine HCl (Effexor Xr) 75 mg DAILY PO 01/09/19 09:00 01/11/19 10:04 DC 01/11/19 08:27 Venlafaxine HCl (Effexor Xr) 150 mg DAILY PO 01/12/19 09:00 01/14/19 08:01 Vitamin D (Vitamin D) 1,000 units DAILY PO 01/08/19 09:00 01/14/19 08:01 Allergies Coded Allergies: No Known Allergies (Unverified , 11/04/18) MIGUEL A ALMANZAR DO Jan 14, 2019 9:54 am
[2019-01-14] MEDS ORDERED: hydrOXYzine 50 MG TAB PO ONE (12:00)
[2019-01-14 17:44] VITALS: BP 16/73
[2019-01-14] MEDS: hydrOXYzine 50 MG TAB PO PRN (20:01)
[2019-01-14] MEDS: traZODone 100 MG TAB PO PRN (20:01)
[2019-01-14] MEDS ORDERED: MIRTAZAPINE 15 MG TAB PO SCH (21:00)
[2019-01-15 06:22] VITALS: BP 111/58
[2019-01-15] MEDS: NICOTINE 21MG/24HR 1 EA TRANSDERMAL TD PRN (08:11)
[2019-01-15] MEDS: VENLAFAXINE **XR** 75MG CAPSULE PO SCH (08:12)
[2019-01-15] MEDS: VITAMIN D 1,000 INTERNATIONAL UNITS TABLET PO SCH (08:12)
--- NOTE | 2019-01-15 09:35 | MHIPNPDOC ---
[facility] Progress Note Progress Note DATE OF SERVICE: 01/15/19 HISTORY: Patient is a 23 -year-old , AD, male, with a history of depression and anxiety, one previous suicidal gesture 10/2018 with admission [facility] who was sent by EMS after he was seen for scheduled appt at [facility] due to thoughts of SI with plan to stab himself for the past 3-4 days. In the ED pt continued to endorse SI with plan to stab himself, denied any known triggers other than stating "I'm tired of feeling this way." Per ED when pt reported to ED 10/2018 prior to transfer to [place] report suicidal gesture and HI and has a diary of illustrations of ways to kill himself and others. Was sent from [place] to [place] for detention treatment for 6wks that he found beneficial. He reported increase alcohol use due to depression and SI in the ED. He denied HI, hallucinations, and delusions. Pt seen at states he's here b/c "I told my outpatient provider that last Monday I going to slit my wrist b/c I'm done with everything... nothing works" regarding treatment. Pt states he's tried everything and nothing works, admits he feels hopeless and wants to ." That he doesn't need to stay b/c it doesn't work "this is who I am." Pt is very withdrawn, depressed, and hopeless and states he needs to be d/c even though he wants to b/c nothing will help and denies he'll actively try to harm himself. His insight and judgement are very poor. He names a number of SSRI medications he's tried in the past that weren't helpful. Asked if he's ever taken effexor xr and denies, has never tried an antipsychotic as antidepressant augmentor before. Spoke with pt about start effexor xr for depression with abilify 5mg qhs as an augmentor, risks benefits discussed and agreeable. Endorses poor concentration, energy (no longer runs "b/c I don't feel like it), anhedonia, avolition, negative cognitive distortions, and internal irritability. Denies hallucinations, delusions. Denies HI. Feels safe here. Highly encouraged to go to groups to learn coping skills. VITAL SIGNS: See below. NEW TEST RESULTS: See below. CURRENT MEDICATIONS: See below. MENTAL STATUS EXAMINATION: No change General Appearance: well groomed, appears stated age, hospital scrubs/clothing Build: average, tall Demeanor: anxious and fidgety Eye Contact: poor Activity: more average, anxious Behavior: cooperative, anxious Speech: clear, low in volume, non-spontaneous Mood: depressed (very), very anxious Mood "ok" Affect: anxious, improved range, congruent Thought Process: logical/linear, very depressed, intact, other (intact hopeless, negative cognitive distortions, believes he deserves to be punished b/c he's a horrible person) Thought Content (Delusions): other (continues to want to even though denies he will act on it, denies HI, denies AVH) Thought Content (Other): other (hopeless that nothing will help and he'll always be depressed) Perception (Hallucinations): none reported Perception (Other): none reported Cognition (Impairment of): none reported Cognition(Intelligence Est.): average Oriented: Awake, Alert, Oriented times three Insight: poor (very) Judgment: Poor (very) Psychosis: Denies DIAGNOSES: 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 States he slept better last night with increase in trazodone and start of a remeron but did wake up at 2am unable to fall back asleep. He's agreeable to increasing his remeron that he states is beneficial and he's tolerating it well (per d/c airport planner had been on remeron 45mg qhs at [place] previously). Per d/c airport planner, pt reported to self harm thru whipping himself and cutting himself due to guilt like feelings related to his ex-girlfriend's ex-boyfriend killing himself b/c she was cheating on her ex- boyfriend with the pt who blames himself. Pt continues to have very negative cognitive distortions of himself and believes he is a horrible person that needs to be punished. He's very religiously focused in his beliefs as to why he must punish himself. Continues to appear to show some range improvement with medications and groups and is having more future oriented thoughts, now wanting to be a safety aid when he gets out of the . Monday he wanted to be an exorcist. Per d/c airport planner pt has told his mother that he planned to commit suicide in near future after a big cross country race and that his Angel found a huge knife in his barracks room that pt had but stated he wasn't going to use to harm himself b/c it'd been blessed with holy water that would prevent him from going to hell. States he's tolerating his meds and will continue to wait for improvement in symptoms with continued use. Per d/c airport planner pt was on abilify at [place] that appeared beneficial but was discontinued prior d/c for unknown reason. Spoke with pt's outpatient psychiatrist at [facility] and she stated they are preparing to send pt to [facility] in [place], [place] for fdc treatment in the IOP program where pt also has the possibilities of having ECT, TMS, or ketamine as possible additional treatments for his severe depression and thoughts of wanting to be . As of now, awaiting bed date for [facility]. Pt is showing some improvement in symptoms with his current meds and therapy. He denies HI, hallucinations, delusions. Pt feels safe here. MANAGEMENT PLAN: increase remeron medications effexor xr 150mg daily abilify 5mg qhs vistaril 50mg q6hr prn anxiety trazodone 100mg qhs prn insomnia remeron 30mg qhs TIME SPENT: 30 minutes. Vital Signs Vital Signs Date Time Temp Pulse Resp B/P (MAP) Pulse Ox O2 Delivery O2 Flow Rate FiO2 01/15/19 06:22 97.4 72 16 111/58 (75) Room Air 01/09/19 16:44 97 Current Medications Current Medications Medications (Trade) Dose Ordered Sig/Stephanie Route PRN Reason Start Time Stop Time Status Last Admin Dose Admin Al Hydrox/Mg Hydrox/Simethicone (Mylanta) 30 ml Q4HP PRN PO HEARTBURN/INDIGESTION 01/07/19 17:30 Aripiprazole (AbiLIFY) 5 mg QHS PO 01/08/19 21:00 01/14/19 20:01 Bacitracin (Bacitracin Oint) X5 DAYS TO LEFT ARM LACERATIONS. BID TOP 01/08/19 09:00 01/12/19 21:01 DC 01/10/19 08:34 Home Med (Med Rec Complete!) ASDIRECTED XX 01/07/19 17:00 01/07/19 17:01 DC Hydroxyzine HCl (Atarax) 25 mg Q4HP PRN PO ANXIETY/AGITATION 01/11/19 13:00 01/14/19 10:31 DC 01/14/19 08:01 Hydroxyzine HCl (Atarax) 50 mg Q6HP PRN PO ANXIETY 01/14/19 11:00 01/14/19 20:01 Ibuprofen (Advil) 400 mg Q6HP PRN PO PAIN 01/07/19 17:30 Magnesium Hydroxide (Milk Of Magnesia) 30 ml DAILYPRN PRN PO CONSTIPATION 01/07/19 17:30 Mirtazapine (Remeron) 15 mg QHS PO 01/14/19 21:00 01/14/19 20:01 Nicotine (Nicoderm Cq 21mg) 1 patch DAILYPRN PRN TD NICOTINE WITHDRAWAL 01/08/19 09:00 01/15/19 08:11 Propranolol HCl (Inderal) 10 mg Q8HP PRN PO ANXIETY 01/07/19 20:45 01/13/19 12:28 Trazodone HCl (Desyrel) 50 mg QHSP PRN PO INSOMNIA 01/07/19 17:30 01/07/19 20:36 DC Trazodone HCl (Desyrel) 100 mg QHSP PRN PO INSOMNIA 01/07/19 20:45 01/14/19 20:01 Venlafaxine HCl (Effexor Xr) 75 mg DAILY PO 01/09/19 09:00 01/11/19 10:04 DC 01/11/19 08:27 Venlafaxine HCl (Effexor Xr) 150 mg DAILY PO 01/12/19 09:00 01/15/19 08:12 Vitamin D (Vitamin D) 1,000 units DAILY PO 01/08/19 09:00 01/15/19 08:12 Allergies Coded Allergies: No Known Allergies (Unverified , 11/04/18) MIGUEL A ALMANZAR DO Jan 15, 2019 9:35 am
[2019-01-15] MEDS: hydrOXYzine 50 MG TAB PO PRN (12:15)
[2019-01-15 17:05] VITALS: BP 152/70
[2019-01-15] MEDS: traZODone 100 MG TAB PO PRN (20:03)
[2019-01-15] MEDS: MIRTAZAPINE 15 MG TAB PO SCH (20:04)
[2019-01-16 06:05] VITALS: BP 121/69
[2019-01-16] MEDS: VENLAFAXINE **XR** 75MG CAPSULE PO SCH (08:08)
[2019-01-16] MEDS: VITAMIN D 1,000 INTERNATIONAL UNITS TABLET PO SCH (08:08)
--- NOTE | 2019-01-16 10:09 | MHIPNPDOC ---
[facility] Progress Note Progress Note DATE OF SERVICE: 01/16/19 HISTORY: Patient is a 23 -year-old , AD, male, with a history of depression and anxiety, one previous suicidal gesture 10/2018 with admission [facility] who was sent by EMS after he was seen for scheduled appt at [facility] due to thoughts of SI with plan to stab himself for the past 3-4 days. In the ED pt continued to endorse SI with plan to stab himself, denied any known triggers other than stating "I'm tired of feeling this way." Per ED when pt reported to ED 10/2018 prior to transfer to [place] report suicidal gesture and HI and has a diary of illustrations of ways to kill himself and others. Was sent from [place] to [place] for penitentiary treatment for 6wks that he found beneficial. He reported increase alcohol use due to depression and SI in the ED. He denied HI, hallucinations, and delusions. Pt seen at states he's here b/c "I told my outpatient provider that last Monday I going to slit my wrist b/c I'm done with everything... nothing works" regarding treatment. Pt states he's tried everything and nothing works, admits he feels hopeless and wants to ." That he doesn't need to stay b/c it doesn't work "this is who I am." Pt is very withdrawn, depressed, and hopeless and states he needs to be d/c even though he wants to b/c nothing will help and denies he'll actively try to harm himself. His insight and judgement are very poor. He names a number of SSRI medications he's tried in the past that weren't helpful. Asked if he's ever taken effexor xr and denies, has never tried an antipsychotic as antidepressant augmentor before. Spoke with pt about start effexor xr for depression with abilify 5mg qhs as an augmentor, risks benefits discussed and agreeable. Endorses poor concentration, energy (no longer runs "b/c I don't feel like it), anhedonia, avolition, negative cognitive distortions, and internal irritability. Denies hallucinations, delusions. Denies HI. Feels safe here. Highly encouraged to go to groups to learn coping skills. VITAL SIGNS: See below. NEW TEST RESULTS: See below. CURRENT MEDICATIONS: See below. MENTAL STATUS EXAMINATION: No change General Appearance: well groomed, appears stated age, hospital scrubs/clothing Build: average, tall Demeanor: anxious and fidgety Eye Contact: poor Activity: more average, anxious Behavior: cooperative, anxious Speech: clear, low in volume, non-spontaneous Mood: depressed (very), very anxious Mood "ok" Affect: anxious, improved range, congruent Thought Process: logical/linear, very depressed, intact, other (intact hopeless, negative cognitive distortions, believes he deserves to be punished b/c he's a horrible person) Thought Content (Delusions): other (continues to want to even though denies he will act on it, denies HI, denies AVH) Thought Content (Other): other (hopeless that nothing will help and he'll always be depressed) Perception (Hallucinations): none reported Perception (Other): none reported Cognition (Impairment of): none reported Cognition(Intelligence Est.): average Oriented: Awake, Alert, Oriented times three Insight: poor (very) Judgment: Poor (very) Psychosis: Denies DIAGNOSES: Major Depressive D/O severe recurrent with out psychotic features (Unipolar type) ASSESSMENT:Pt awaiting transfer to [facility] for today or tomorrow. States he's hopeful that the services (therapy, meds, groups, TMS or ECT or ketamine) help him to feel better and no longer feel like he wants to be . Admits he's anxious about going. States he slept well last night with increase in remeron Per d/c habitat conservation planner, pt reported to self harm thru whipping himself and cutting himself due to guilt like feelings related to his ex-girlfriend's ex- boyfriend killing himself b/c she was cheating on her ex-boyfriend with the pt who blames himself. Pt continues to have very negative cognitive distortions of himself and believes he is a horrible person that needs to be punished. He's very religiously focused in his beliefs as to why he must punish himself. Continues to appear to show some range improvement with medications and groups and is having more future oriented thoughts, now wanting to be a safety aid when he gets out of the . Monday he wanted to be an exorcist. Per d/c habitat conservation planner pt has told his mother that he planned to commit suicide in near future after a big cross country race and that his Angel found a huge knife in his barracks room that pt had but stated he wasn't going to use to harm himself b/c it'd been blessed with holy water that would prevent him from going to hell. States he's tolerating his meds and will continue to wait for improvement in symptoms with continued use. Per d/c habitat conservation planner pt was on abilify at [place] that appeared beneficial but was discontinued prior d/c for unknown reason. Spoke with pt's outpatient psychiatrist at [facility] and she stated they are preparing to send pt to [facility] in [place] for superintendent terminal treatment in the IOP program where pt also has the possibilities of having ECT, TMS, or ketamine as possible additional treatments for his severe depression and thoughts of wanting to be . As of now, awaiting bed date for [facility]. Pt is showing some improvement in symptoms with his current meds and therapy. He denies HI, hallucinations, delusions. Pt feels safe here. MANAGEMENT PLAN: transfer to [facility] today or tomorrow. medications effexor xr 150mg daily abilify 5mg qhs vistaril 50mg q6hr prn anxiety trazodone 100mg qhs prn insomnia remeron 30mg qhs TIME SPENT: 30 minutes. Vital Signs Vital Signs Date Time Temp Pulse Resp B/P (MAP) Pulse Ox O2 Delivery O2 Flow Rate FiO2 01/16/19 06:05 97.7 83 16 121/69 (86) Room Air Current Medications Current Medications Medications (Trade) Dose Ordered Sig/Stephanie Route PRN Reason Start Time Stop Time Status Last Admin Dose Admin Al Hydrox/Mg Hydrox/Simethicone (Mylanta) 30 ml Q4HP PRN PO HEARTBURN/INDIGESTION 01/07/19 17:30 Aripiprazole (AbiLIFY) 5 mg QHS PO 01/08/19 21:00 01/15/19 20:03 Bacitracin (Bacitracin Oint) X5 DAYS TO LEFT ARM LACERATIONS. BID TOP 01/08/19 09:00 01/12/19 21:01 DC 01/10/19 08:34 Home Med (Med Rec Complete!) ASDIRECTED XX 01/07/19 17:00 01/07/19 17:01 DC Hydroxyzine HCl (Atarax) 25 mg Q4HP PRN PO ANXIETY/AGITATION 01/11/19 13:00 01/14/19 10:31 DC 01/14/19 08:01 Hydroxyzine HCl (Atarax) 50 mg Q6HP PRN PO ANXIETY 01/14/19 11:00 01/15/19 12:15 Ibuprofen (Advil) 400 mg Q6HP PRN PO PAIN 01/07/19 17:30 Magnesium Hydroxide (Milk Of Magnesia) 30 ml DAILYPRN PRN PO CONSTIPATION 01/07/19 17:30 Mirtazapine (Remeron) 15 mg QHS PO 01/14/19 21:00 01/15/19 09:35 DC 01/14/19 20:01 Mirtazapine (Remeron) 30 mg QHS PO 01/15/19 21:00 01/15/19 20:04 Nicotine (Nicoderm Cq 21mg) 1 patch DAILYPRN PRN TD NICOTINE WITHDRAWAL 01/08/19 09:00 01/15/19 08:11 Propranolol HCl (Inderal) 10 mg Q8HP PRN PO ANXIETY 01/07/19 20:45 01/13/19 12:28 Trazodone HCl (Desyrel) 50 mg QHSP PRN PO INSOMNIA 01/07/19 17:30 01/07/19 20:36 DC Trazodone HCl (Desyrel) 100 mg QHSP PRN PO INSOMNIA 01/07/19 20:45 01/15/19 20:03 Venlafaxine HCl (Effexor Xr) 75 mg DAILY PO 01/09/19 09:00 01/11/19 10:04 DC 01/11/19 08:27 Venlafaxine HCl (Effexor Xr) 150 mg DAILY PO 01/12/19 09:00 01/16/19 08:08 Vitamin D (Vitamin D) 1,000 units DAILY PO 01/08/19 09:00 01/16/19 08:08 Allergies Coded Allergies: No Known Allergies (Unverified , 11/04/18) MIGUEL A ALMANZAR DO Jan 16, 2019 9:06 am
[2019-01-16 11:24] VITALS: BP 135/79
[2019-01-16] MEDS: PROPRANOLOL 10 MG TAB PO PRN (11:24)
[2019-01-16 18:13] VITALS: BP 119/58
[2019-01-16] MEDS: MIRTAZAPINE 15 MG TAB PO SCH (20:41)
[2019-01-16] MEDS: traZODone 100 MG TAB PO PRN (20:42)
[2019-01-17 06:16] VITALS: BP 115/74
[2019-01-17] MEDS: VENLAFAXINE **XR** 75MG CAPSULE PO SCH (07:33)
[2019-01-17] MEDS: VITAMIN D 1,000 INTERNATIONAL UNITS TABLET PO SCH (07:33)
[2019-01-17] MEDS: hydrOXYzine 50 MG TAB PO PRN (07:34)
--- NOTE | 2019-01-17 09:04 | MHDSPDOC ---
[facility] Discharge Summary Discharge Summary DATE OF ADMISSION: Jan 07, 2019 at 5:16 pm DATE OF DISCHARGE: Jan 17, 2019 DISCHARGE DIAGNOSES: Major Depressive D/O severe recurrent with out psychotic features (Unipolar typ e) REASON FOR ADMISSION: Patient is a 23 -year-old , AD, male, with a history of depression and anxiety, one previous suicidal gesture 10/2018 with admission [facility] who was sent by EMS after he was seen for scheduled appt at [facility] due to thoughts of SI with plan to stab himself for the past 3-4 days. In the ED pt continued to endorse SI with plan to stab himself, denied any known triggers other than stating "I'm tired of feeling this way." Per ED when pt reported to ED 10/2018 prior to transfer to [place] report suicidal gesture and HI and has a diary of illustrations of ways to kill himself and others. Was sent from [place] to [place] for assisted treatment for 6wks that he found beneficial. He reported increase alcohol use due to depression and SI in the ED. He denied HI, hallucinations, and delusions. Pt seen at states he's here b/c "I told my outpatient provider that last Monday I going to slit my wrist b/c I'm done with everything... nothing works" regarding treatment. Pt states he's tried everything and nothing works, admits he feels hopeless and wants to ." That he doesn't need to stay b/c it does n't work "this is who I am." Pt is very withdrawn, depressed, and hopeless and states he needs to be d/c even though he wants to b/c nothing will help and denies he'll actively try to harm himself. His insight and judgement are very poor. He names a number of SSRI medications he's tried in the past that weren't helpful. Asked if he's ever taken effexor xr and denies, has never tried an antipsychotic as antidepressant augmentor before. Spoke with pt about start effexor xr for depression with abilify 5mg qhs as an augmentor, risks benefits discussed and agreeable. Endorses poor concentration, energy (no longer runs "b/c I don't feel like it), anhedonia, avolition, negative cognitive distortions, and internal irritability. Denies hallucinations, delusions. Denies HI. Feels safe here. Highly encouraged to go to groups to learn coping skills. CONSULTANTS INVOLVED: none TREATMENT AND PROGRESS ON THE UNIT : Pt was admitted to [facility], seen for psychiatric assessment and started on effexor xr increased to 150mg daily, abilify 5mg qhs (had never been on a SNRI and antipsychotic before for severe depression), remeron 30mg qhs for sleep. He was provided vistaril 50mg q6hr prn anxiety and trazodone 100mg qhs prn insomnia. Pt found his medications were starting to be beneficial for some of his mood and anxiety and he tolerated them well. He attended groups daily during his stay that he found very beneficial as would get anxious when not occurring but during those times he would draw to improve his anxiety. His symptoms improved mildly with treatment. On day of discharge he denied HI, hallucinations, delusions. He still had thoughts of wanting to be but no plan or intent to act on his thoughts of want to be . He was discharged to [facility] in [place], [place] for fdc psychiatric treatment. DISCHARGE ASSESSMENT: Pt seen and states he's looking forward to going to [facility] today. States he's hopeful that the services (therapy, meds, groups, TMS or ECT or ketamine) help him to feel better and no longer feel like he wants to be . Admits he's anxious about going. States he slept well last night with increase in remeron. Per d/c logistics planner, pt reported to self harm thru whipping himself and cutting himself due to guilt like feelings related to his ex-girlfriend's ex-boyfriend killing himself b/c she was cheating on her ex- boyfriend with the pt who blames himself. Pt continues to have very negative cognitive distortions of himself and believes he is a horrible person that needs to be punished. He's very religiously focused in his beliefs as to why he must punish himself. Continues to appear to show some range improvement with medications and groups and is having more future oriented thoughts, now wanting to be a safety aid when he gets out of the . Monday he wanted to be an exorcist. Per d/c logistics planner pt has told his mother that he planned to commit suicide in near future after a big cross country race and that his Angel found a huge knife in his barracks room that pt had but stated he wasn't going to use to harm himself b/c it'd been blessed with holy water that would prevent him from going to hell. States he's tolerating his meds and is waiting for improvement in symptoms with continued use. Per d/c logistics planner pt was on abilify at [place] that appeared beneficial but was discontinued prior d/c for unknown reason. Spoke with pt's outpatient psychiatrist at [facility] and she stated they are preparing to send pt to [facility] in [place] for long term care administrator treatment in the IOP program where pt also has the possibilities of having ECT, TMS, or ketamine as possible additional treatments for his severe depression and thoughts of wanting to be . Pt is showing some improvement in symptoms with his current meds and therapy. He denies HI, hallucinations, delusions. MENTAL STATUS EXAMINATION ON DISCHARGE: General Appearance: well groomed, appears stated age, hospital scrubs/clothing Build: average, tall Demeanor: anxious and fidgety Eye Contact: poor Activity: more average, anxious Behavior: cooperative, anxious Speech: clear, low in volume, non-spontaneous Mood: depressed (very), very anxious Mood "ok" Affect: anxious, improved range, congruent Thought Process: logical/linear, very depressed, intact, other (intact hopeless, negative cognitive distortions, believes he deserves to be punished b/c he's a horrible person) Thought Content (Delusions): other (continues to want to even though denies he will act on it, denies HI, denies AVH) Thought Content (Other): other (hopeless that nothing will help and he'll always be depressed) Perception (Hallucinations): none reported Perception (Other): none reported Cognition (Impairment of): none reported Cognition(Intelligence Est.): average Oriented: Awake, Alert, Oriented times three Insight: poor (very) Judgment: Poor (very) Psychosis: Denies MEDICATIONS ON DISCHARGE: effexor xr 150mg daily abilify 5mg qhs vistaril 50mg q6hr prn anxiety trazodone 100mg qhs prn insomnia remeron 30mg qhs PLAN/FOLLOWUP ARRANGEMENTS: D/c to [facility] in [place] for long term care administrator psychiatric treatment. The amount of time spent in the coordination of care for this patient was approximately 30 minutes. Vital Signs/I&Os Vital Signs Date Time Temp Pulse Resp B/P (MAP) Pulse Ox O2 Delivery O2 Flow Rate FiO2 01/17/19 06:16 98.6 99 18 115/74 (88) 01/16/19 06:05 Room Air Medications Scheduled Cholecalciferol (Vitamin D3) (Vitamin D3) 1,000 Unit Tablet, 1,000 UNIT PO DAILY, (Reported) Melatonin (Melatonin) 3 Mg Tablet, 9 MG PO QHS, (Reported) Mirtazapine (Mirtazapine) 45 Mg Tab.rapdis, 90 MG PO QHS, (Reported) Propranolol HCl (Propranolol HCl) 20 Mg Tablet, 20 MG PO TID, (Reported) Trazodone HCl (Trazodone HCl) 100 Mg Tablet, 100 MG PO QHS, (Reported) Allergies Coded Allergies: No Known Allergies (Unverified , 11/04/18) MIGUEL A ALMANZAR DO Jan 17, 2019 9:04 am
== END 2019-01-17 09:40 | DRG 885 ==
LOC: M ED 13:30 → M ED INP 17:16 → M PSY 21:35
PROVIDERS: ADMIT Psychiatry & Neurology Psychiatry; ATTEND Psychiatry & Neurology Psychiatry
DX: F33.2 Major depressive disorder, recurrent severe without psychotic features (principal); R45.851 Suicidal ideations; Z79.899 Other long term (current) drug therapy; F17.200 Nicotine dependence, unspecified, uncomplicated; G47.00 Insomnia, unspecified

== ENCOUNTER 2019-03-08 12:57 | Inpatient (IN) | payer OTHER ==
[~2019-03-08] VITALS: Ht 190.5 cm; Wt 105.5 kg
[~2019-03-08 12:57] MED LIST changes: +MELA3TAB59 PO; +MIRT1TAB16; +MIRT1TAB17 PO; +PROP20TA72 PO; +TRAZ-257 PO; +VITA-122 PO
[2019-03-08] MEDS ORDERED: CLON-412 PO (13:20)
[2019-03-08] MEDS ORDERED: HYDR50TA70 PO (13:20)
[2019-03-08] MEDS ORDERED: OLAN5TAB PO (13:20)
[2019-03-08 13:46] LABS: HEMATOCRIT 43.6 % (42.0-52.0); HEMOGLOBIN 14.6 g/dl (13.5-17.5); MEAN CORPUSCULAR HEMOGLOBIN 29.5 pg (27.0-33.0); MEAN CORPUSCULAR HGB CONC 33.5 g/dl (32.0-36.5); MEAN CORPUSCULAR VOLUME 88.1 fl (80.0-96.0); PLATELET COUNT, AUTOMATED 292 10^3/uL (150-450); RED BLOOD COUNT 4.95 10^6/uL (4.30-6.10); WHITE BLOOD COUNT 6.4 10^3/uL (4.0-10.0)
[2019-03-08 14:18] LABS: AMPHETAMINES LEVEL URINE NEGATIVE (NEGATIVE); BARBITURATES URINE NEGATIVE (NEGATIVE); BENZODIAZEPINES URINE NEGATIVE (NEGATIVE); CANNABINOIDS URINE NEGATIVE (NEGATIVE); COCAINE METABOLITE URINE NEGATIVE (NEGATIVE); METHADONE URINE NEGATIVE (NEGATIVE); OPIATES URINE NEGATIVE (NEGATIVE); PHENCYCLIDINE URINE NEGATIVE (NEGATIVE)
[2019-03-08 14:27] LABS: ACETAMINOPHEN LEVEL < 2.0 UG/ML (10.0-30.0); ALBUMIN 4.3 GM/DL (3.2-5.2); ALT/SGPT 69 U/L (12-78); BILIRUBIN,DIRECT < 0.1 MG/DL (0.0-0.2); BILIRUBIN,TOTAL 0.3 MG/DL (0.2-1.0); BLOOD UREA NITROGEN 9 MG/DL (7-18); CALCIUM LEVEL 9.1 MG/DL (8.5-10.1); CARBON DIOXIDE LEVEL 29 MEQ/L (21-32); CHLORIDE LEVEL 105 MEQ/L (98-107); CREATININE FOR GFR 1.07 MG/DL (0.70-1.30); ETHYL ALCOHOL (ETHANOL) < 0.003 % (0.000-0.010); GLOMERULAR FILTRATION RATE > 60.0 (>60); GLUCOSE, FASTING 125 MG/DL (70-100); POTASSIUM SERUM 3.8 MEQ/L (3.5-5.1); SALICYLATE LEVEL 2.1 MG/DL (5.0-30.0); SODIUM LEVEL 140 MEQ/L (136-145); TOTAL PROTEIN 7.7 GM/DL (6.4-8.2)
[2019-03-08] MEDS ORDERED: VITA100054 PO (15:02)
[2019-03-08] MEDS ORDERED: VENL75CA47 PO (15:02)
[2019-03-08] MEDS ORDERED: MAALOX 30 ML SUSP *UDC PO PRN (15:15)
[2019-03-08] MEDS ORDERED: traZODone 50 MG TAB PO PRN (15:15)
[2019-03-08] MEDS ORDERED: ACETAMINOPHEN TAB 650MG DOSE (2X325MG) PO PRN (15:15)
[2019-03-08] MEDS ORDERED: MOM 30ML SUSPENSION UDC PO PRN (15:15)
[2019-03-08 16:50] VITALS: BP 128/71
[2019-03-08 17:01] VITALS: BP 136/88
[2019-03-08] MEDS: NICOTINE 21MG/24HR 1 EA TRANSDERMAL TD SCH (17:35)
[2019-03-08] MEDS ORDERED: OLANZapine ORAL DISINTEGRATING TAB 5MG PO PRN (22:00)
[2019-03-08] MEDS: hydrOXYzine 50 MG TAB PO PRN (22:02)
[2019-03-08] MEDS: traZODone 100 MG TAB PO PRN (22:02)
[2019-03-08] MEDS ORDERED: OLANZapine 5 MG TAB PO ONE (22:15)
[2019-03-09 06:29] VITALS: BP 105/53
[2019-03-09] MEDS: NICOTINE 21MG/24HR 1 EA TRANSDERMAL TD SCH (08:32)
--- NOTE | 2019-03-09 15:53 | HPEPDOC ---
General Date of Admission Mar 08, 2019 at 15:11 Date of Service: Mar 09, 2019 Chief Complaint The patient is a 23-year-old male admitted with a reason for visit of Unspecified Depression. 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 I am seeing the patient here for medical history and physical Home Medications Scheduled Cholecalciferol (Vitamin D3) (Vitamin D3) 1,000 Unit Capsule, 1,000 UNIT PO DAILY, (Reported) Clonidine HCl (Clonidine HCl) 0.1 Mg Tablet, 0.1 MG PO DAILY, (Reported) Melatonin (Melatonin) 3 Mg Tablet, 9 MG PO QHS, (Reported) Olanzapine (Olanzapine) 5 Mg Tablet, 5 MG PO DAILY, (Reported) Trazodone HCl (Trazodone HCl) 100 Mg Tablet, 200 MG PO QHS, (Reported) Venlafaxine HCl (Venlafaxine HCl ER) 75 Mg Cap.er.24h, 225 MG PO DAILY, (Reported) Scheduled PRN Hydroxyzine HCl (Hydroxyzine HCl) 50 Mg Tablet, 50 MG PO BID PRN for ANXIETY, (Reported) Allergies Coded Allergies: No Known Allergies (Unverified , 11/04/18) Past Medical History Medical History Major depression with suicidal gestures. Whipping and cutting behavior. Family History Significant Family History: Cancer ( has breat cancer) Mother alive and well, age 39. Father 45, alive and well. Sister 18 years old, no medical problems Social History * Smoker: current smoker Alcohol: heavy Drugs: denies A-FIB/CHADSVASC A-FIB History Current/History of A-Fib/PAF?: No Review of Systems Constitutional: Denies: Chills, Fever, Night Sweats Eyes: Denies: Pain, Vision change ENT: Denies: Head Aches, Ear Pain, Dysphagia Skin: Denies: Rash, Lesions, Jaundice, Bruising, Itching, Dry, Breakdown, Nail Changes, Other Pulmonary: Denies: Dyspnea, Cough Cardiovascular: Denies: Chest Pain, Palpitations, Orthopnea, Paroxysmal Noc. Dyspnea, Lt Headedness Gastrointestinal: Denies: Nausea, Vomiting, Abdominal Pain, Diarrhea Genitourinary: Denies: Dysuria, Frequency, Incontinence, Retention Hematologic: Denies: Bruising, Bleeding Excessively Musculoskeletal: Denies: Neck Pain, Back Pain, Joint Pain, Muscle Pain, Spasms Neurological: Denies: Weakness, Numbness, Change in speech, Confusion Physical Examination General Exam: Positive: Alert, Cooperative, No Acute Distress Eye Exam: Positive: PERRLA, Conjunctiva & lids normal, EOMI; Negative: Sclera icteric ENT Exam: Positive: Atraumatic, Mucous membr. moist/pink, Pharynx Normal Neck Exam: Positive: Supple; Negative: JVD, thyromegaly Chest Exam: Positive: Clear to auscultation, Normal air movement Heart Exam: Positive: Rate Normal, Regular Rhythm, Normal S1, Normal S2; Negative: Murmurs, Rubs Abdomen Exam: Positive: Normal bowel sounds, Soft; Negative: Tenderness, Hepatospenomegaly Extremity Exam: Positive: Normal pulses; Negative: Clubbing, Cyanosis, Edema Skin Exam: Positive: Nl turgor and temperature; Negative: Breakdown, Lesion Vital Signs Vital Signs Date Time Temp Pulse Resp B/P (MAP) Pulse Ox O2 Delivery O2 Flow Rate FiO2 03/09/19 06:29 98.6 63 16 105/53 (70) 03/08/19 16:50 100 Assessment/Plan 23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 I am seeing the patient here for medical history and physical Tobacco use: discussed about smoking cessation. offered patches refused. Suicidal ideation and depression. Managed by psychiatrist. Insomnia. Defer to psychiatrist for medications. Recent weight gain. Normal TSH. Weight loss as outpatient. discussed about decreasing alcohol intake No active medical issues at present Plan / VTE VTE Prophylaxis Ordered?: No LEEANN MCDANIELS MD Mar 09, 2019 13:51
[2019-03-09 16:28] VITALS: BP 126/66
[2019-03-09] MEDS: OLANZapine 5 MG TAB PO SCH (20:28)
[2019-03-09] MEDS: traZODone 100 MG TAB PO PRN (20:28)
--- NOTE | 2019-03-09 21:31 | MHHPE ---
DATE OF ADMISSION: 03/08/2019 CHIEF COMPLAINT: Feels depressed, hears a voice. VITAL SIGNS: Blood pressure 126/56, pulse 83, temperature 98.6. SUBJECTIVE: He is 23 years old. 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 He is apparently established with [facility] and has had previous hospitalizations, including here last month when he was seen by Dr. 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 The discharge summary is reviewed, please refer to that for details related to the circumstances of that admission, as well as his hospital stay. During that time, was treated here and then transferred to [facility] in [place], [place] for long-term psychiatric treatment. At that time, he was on Effexor XR at 150 mg daily, Abilify 5 mg at night, Vistaril 50 mg as needed for anxiety, trazodone 100 mg at night as needed, Remeron 30 mg at night. He has attended care at [facility], and has come in as he has indicated that he has been hearing a voice, which has been asking him to kill other people, nobody in particular, he was concerned and he felt increasingly distressed and did not want to act upon the voice. He also says that the voice has on occasions asked him to kill himself. Says that there was a time when he wanted to kill a friend of his upon instructions by the voice, and had planned to do it with a knife, he is vague on when that was, but suggests that it was in the last couple of months. Says that the voice on occasions has asked him to hurt himself but that he has no intention of doing so, but was concerned that the voice is becoming more intense recently, he did not feel that he was getting any better and decided to seek help, was brought here. He says when the circumstances are more difficult and he is more stressed, the voices is more frequent and he finds it hard to ignore. He says that it is only one voice, it is male, and that it originates from outside his head, then suggests that it is a voice of a demon, says he believes in demons. He says that he felt quite disturbed when he initially heard the voice, which was several weeks ago, but that there are times when he would tend to ignore it. He feels that this has been harder for him to do. Denies that the voice comments on others, and he says that it only gives him instructions to hurt himself or others. 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 Suggests that he feels down as well. Sleep is fair. Appetite is okay. He has been [facility] boarded out of the , says that it is based on mental health grounds, he is not sure when that will happen, but he plans to go to [place], which is where his family stays, he plans to get his own place there when he leaves. No history consistent with thought broadcasting or thought insertion. No history of any visual perceptual disturbances. He also suggests that he has cut himself recently, and that was on advice from the voice. He says that he did that as he himself likes blood. He denies that it was an attempt to kill himself. He says that he has never heard more than one voice, denies any ideas of reference as such. Previous records, suggest that he has indicated that he has heard the voice fairly consistently since the age of 14; however, there is no mention of that on previous assessments and records, in fact he had denied any perceptual disturbances. He says that when at the long-term facility, he was diagnosed with depression and anxiety and autism, this is all per the patient. PAST PSYCHIATRIC HISTORY: As indicated above. He has had a couple of hospitalizations, including one to [place] late last year. He was sent to a long-term facility after that and then admitted here in late December, discharged early January to go to [facility] in [place], [place]. He is established at outpatient care at [facility]. MEDICATIONS: Currently these include: - trazodone 100 mg at night - melatonin 3 mg at night - olanzapine 5 mg daily - clonidine 0.1 mg daily - hydroxyzine 50 mg twice a day as needed for anxiety - vitamin D3 - venlafaxine 225 mg daily SUBSTANCE ABUSE HISTORY: Denies any of significance. MEDICAL HISTORY: No acute medical concerns. SOCIAL HISTORY: Please refer to the previous summaries. He says his family is in [place]. He is in the , says that he has just been transferred over to the [facility]. Denies any history of concussions or deployments. He lives in the [facility]. MENTAL STATUS EXAMINATION: He is neat. Somewhat superficially cooperative, possibly a big guarded. There is no agitation. No psychomotor retardation. He answers questions briefly, logically and coherently with a restricted, somewhat flat affect. He has suicidal thoughts, no current plans. He does not appear to be internally preoccupied. No delusional ideations are elicited as such. Cognition is grossly intact. Intellect is average. Judgment and insight are quite questionable. ASSESSMENT: 1. Major depressive disorder by history. 2. Consider major depressive disorder with psychotic features, though this is not very likely. The patient has depressed, anxieties, and hears a voice. The nature of the voice, the characteristics are somewhat atypical, and he suggests that he has heard that for several years though previous records make no mention of that, in fact he denies hallucinations in the past, and this includes the time that he was here last month. There are times that he appears suggestible as well, in regard to the perceptual disturbance. The disturbance itself is not typical in nature in terms of presentations of a primary psychotic disorder. PLAN: He is admitted to the inpatient psychiatry unit and placed on relevant precautions. We will look at obtaining collateral information. We will continue his current medication regimen. He will be encouraged to participate in activities on the unit. Precautions will be taken, given his thoughts. He is to be discharged with followup once he is stable. He suggested that he was ready to go and did not think that he would act on his thoughts, but given the above, discrepancies, lack of consistency, he needs remaining in the hospital. The assessment took 45 minutes. I anticipate a 5 to 7 day stay.
[2019-03-10 06:20] VITALS: BP 114/57
[2019-03-10] MEDS: NICOTINE 21MG/24HR 1 EA TRANSDERMAL TD SCH (08:24)
[2019-03-10] MEDS: hydrOXYzine 50 MG TAB PO PRN (12:52)
[2019-03-10 17:39] VITALS: BP 133/72
[2019-03-10] MEDS: OLANZapine 5 MG TAB PO SCH (20:03)
[2019-03-10] MEDS: traZODone 100 MG TAB PO PRN (20:04)
[2019-03-11 06:23] VITALS: BP 116/52
[2019-03-11] MEDS: hydrOXYzine 50 MG TAB PO PRN (08:36)
[2019-03-11] MEDS: NICOTINE 21MG/24HR 1 EA TRANSDERMAL TD SCH (08:37)
--- NOTE | 2019-03-11 09:00 | MHIPNPDOC ---
[facility] Progress Note Progress Note Inpatient Progress Note Carmelo Sanchez MRN: N/A Date of : N/A Date of Service: 03/11/2019 History of Present Illness 23-year-old man with a reported history of psychosis with questionable psychotic symptoms presents to [facility] initially claiming "suicidal thoughts." He has been admitted in the past where it became quite questionable as to whether he had had illness. He has had multiple behavioral problems and thus was admitted out of an abundance of caution. Interval History Psychiatric symptoms today: The patient is met with, he reports that he is "doing well" and has no homicidal or suicidal thoughts and was discharged. He has been amenable. Affective: The patient any denies any symptoms of depression now. No loss of interest. Psychotic: The patient denies any ah/vh Anxiety: The patient reports no change. Misc: Group Attendance: Attends daily Medication Side effects: See ROS below Behavioral problems/significant events overnight: Reportedly had left a toothbrush that he had been manipulating conspicuously in an attempt to get staff, so this was removed; however, the patient appeared quite pleased with the attention that he had gotten from it. Staff Report: The patient has been engaged laughing and jovial on the unit without any major signs or symptoms of mental illness. Review Of Systems General: Denies fever or appetite changes Cardiovascular: Denies Chest pain or palpations GI: Denies Nausea, vomiting, or bowel changes Respiratory: Denies shortness of breath or cough Neuro: Denies dizziness, tremors Derm: Denies any rashes or pruritus : Denies any dysuria or urinary problems MSK: Denies any muscle tightness or stiffness HEENT: Denies any vision changes or headaches Psychotherapy None on this visit. Vital Signs Reviewed. Mental Status Examination General: Well dressed with good hygiene Speech: Spontaneous and fluid Thought processes: Linear and logical MSK: Smooth and coordinated gait, no signs of tremors or involuntary orofacial movements Thought content: Future orientated Abstract reasoning, and computation: Intact Description of associations: Intact Description of abnormal or psychotic thoughts: Denies any suicidal or homicidal ideation. Denies any auditory or visual hallucinations. Does not appear to be responding to internal stimuli. Does not appear to be endorsing any bizarre or paranoid ideation. Judgment: fair Insight: fair Orientation: Alert and orientated 3 Cognition: Grossly normal Recent and remote memory: Intact Attention span and concentration: Intact Fund of knowledge: Adequate Mood: "okay" Affect: Euthymic with a full range Diagnoses Adjustment disorder with disruption of mood and conduct. Antisocial versus schizoaffective personality disorder. Highly concerned for malingering. Assessment and Plan Adjustment disorder: Continue current medications. Antisocial versus schizoaffective: Could use psychometric testing as highly concerning for malingering. Disposition Discharge will be arranged likely in the next day or 2 back to [facility]. Time Spent 15 minutes. Monday Vital Signs Vital Signs Date Time Temp Pulse Resp B/P (MAP) Pulse Ox O2 Delivery O2 Flow Rate FiO2 03/11/19 06:23 97.9 86 16 116/52 (73) 03/08/19 16:50 100 Current Medications Current Medications Medications (Trade) Dose Ordered Sig/Stephanie Route PRN Reason Start Time Stop Time Status Last Admin Dose Admin Acetaminophen (Tylenol Tab) 650 mg Q6HP PRN PO HEADACHE or DISCOMFORT 03/08/19 15:15 Al Hydrox/Mg Hydrox/Simethicone (Mylanta) 30 ml Q4HP PRN PO HEARTBURN/INDIGESTION 03/08/19 15:15 Home Med (Med Rec Complete!) ASDIRECTED XX 03/08/19 15:15 03/08/19 15:04 DC Hydroxyzine HCl (Atarax) 50 mg BID PRN PO Anxiety 03/08/19 22:00 03/11/19 08:36 Magnesium Hydroxide (Milk Of Magnesia) 30 ml DAILYPRN PRN PO CONSTIPATION 03/08/19 15:15 Nicotine (Nicoderm Cq 21mg) 1 patch DAILY TD 03/08/19 09:00 03/11/19 08:37 Olanzapine (ZyPREXA ZYDIS) 5 mg Q4HP PRN PO ANXIETY/AGITATION 03/08/19 22:00 Olanzapine (ZyPREXA) 5 mg QHS PO 03/09/19 21:00 03/10/19 20:03 Trazodone HCl (Desyrel) 50 mg QHSP PRN PO INSOMNIA 03/08/19 15:15 03/08/19 21:56 DC Trazodone HCl (Desyrel) 200 mg QHSP PRN PO INSOMNIA 03/08/19 22:00 03/10/19 20:04 Allergies Coded Allergies: No Known Allergies (Unverified , 11/04/18) MARK LITTLE DO Mar 11, 2019 09:00
[2019-03-11 14:00] VITALS: BP 101/63
--- NOTE | 2019-03-11 19:16 | MHIPN ---
DATE: 03/10/2019 VITAL SIGNS: Blood pressure 114/57, pulse 75, temperature 97.7. CHIEF COMPLAINT: Says feels okay. SUBJECTIVE: He is seen for followup in the presence of staff. He says that he has been feeling okay, slept reasonably well last night. He does say that he feels less anxious and less depressed. Indicates the voice is now a whisper and that he cannot make out what it says. He says that he has not had any commands from the voice. MENTAL STATUS EXAMINATION: He is neat. He is cooperative. There is no agitation. No psychomotor retardation. He is coherent. Affect is restricted, shows little in terms of reactivity. He is probably more cooperative and less guarded than yesterday. Denies any suicidal thoughts or intents. No homicidal ideas or intents. Currently does not appear to be internally preoccupied. Judgment and insight remain questionable. ASSESSMENT: 1. Major depressive disorder by history. 2. Consider major depressive disorder with psychotic features. His experience of hearing a voice is diminished today. Again, the nature of the voice, the characteristics are quite atypical. PLAN: Continue with current care and observations. He says that he has had psychological testing done, this was at [facility]. He will be seen by the assigned psychiatrist tomorrow and further recommendations will be made.
[2019-03-11] MEDS: traZODone 25MG PER 1/2 TABLET PO PRN (20:23)
[2019-03-11] MEDS: traZODone 100 MG TAB PO PRN (20:24)
[2019-03-11] MEDS: OLANZapine 5 MG TAB PO SCH (20:24)
[2019-03-12 06:09] VITALS: BP 114/54
[2019-03-12] MEDS: NICOTINE 21MG/24HR 1 EA TRANSDERMAL TD SCH ×2 (09:00→09:40)
--- NOTE | 2019-03-12 10:41 | MHIPNPDOC ---
[facility] Progress Note Progress Note Inpatient Progress Note Carmelo Sanchez MRN: N/A Date of : N/A Date of Service: 03/12/2019 History of Present Illness 23-year-old man with a reported history of psychosis with questionable psychotic symptoms presents to [facility] initially claiming "suicidal thoughts." He has been admitted in the past where it became quite questionable as to whether he had had illness. He has had multiple behavioral problems and thus was admitted out of an abundance of caution. Interval History Psychiatric symptoms today: The patient is met with, he reports that he is doing well and has continued to be amenable, pending discharge back to [facility]. Affective: The patient any denies any symptoms of depression now. No loss of interest. Psychotic: The patient denies any ah/vh Anxiety: The patient reports no change. Misc: Group Attendance: Attends daily Medication Side effects: See ROS below Behavioral problems/significant events overnight: None reported. Staff Report: The patient has been jovial, engaged, friendly and amenable. Review Of Systems General: Denies fever or appetite changes Cardiovascular: Denies Chest pain or palpations GI: Denies Nausea, vomiting, or bowel changes Respiratory: Denies shortness of breath or cough Neuro: Denies dizziness, tremors Derm: Denies any rashes or pruritus : Denies any dysuria or urinary problems MSK: Denies any muscle tightness or stiffness HEENT: Denies any vision changes or headaches Psychotherapy None on this visit. Vital Signs Reviewed. Mental Status Examination General: Well dressed with good hygiene Speech: Spontaneous and fluid Thought processes: Linear and logical MSK: Smooth and coordinated gait, no signs of tremors or involuntary orofacial movements Thought content: Future orientated Abstract reasoning, and computation: Intact Description of associations: Intact Description of abnormal or psychotic thoughts: Denies any suicidal or homicidal ideation. Denies any auditory or visual hallucinations. Does not appear to be responding to internal stimuli. Does not appear to be endorsing any bizarre or paranoid ideation. Judgment: fair Insight: fair Orientation: Alert and orientated 3 Cognition: Grossly normal Recent and remote memory: Intact Attention span and concentration: Intact Fund of knowledge: Adequate Mood: "okay" Affect: Euthymic with a full range Diagnoses Adjustment disorder with disruption of mood and conduct. Antisocial versus schizoaffective personality disorder. Highly concerned for malingering. Assessment and Plan Adjustment disorder: Continue current medications. Antisocial versus schizoaffective: Could use psychometric testing as highly concerning for malingering. Disposition Discharge tomorrow to [facility]. Time Spent 15 minutes. Monday Vital Signs Vital Signs Date Time Temp Pulse Resp B/P (MAP) Pulse Ox O2 Delivery O2 Flow Rate FiO2 03/12/19 06:09 97.0 66 14 114/54 (74) 03/08/19 16:50 100 Current Medications Current Medications Medications (Trade) Dose Ordered Sig/Stephanie Route PRN Reason Start Time Stop Time Status Last Admin Dose Admin Acetaminophen (Tylenol Tab) 650 mg Q6HP PRN PO HEADACHE or DISCOMFORT 03/08/19 15:15 Al Hydrox/Mg Hydrox/Simethicone (Mylanta) 30 ml Q4HP PRN PO HEARTBURN/INDIGESTION 03/08/19 15:15 Home Med (Med Rec Complete!) ASDIRECTED XX 03/08/19 15:15 03/08/19 15:04 DC Hydroxyzine HCl (Atarax) 50 mg BID PRN PO Anxiety 03/08/19 22:00 03/11/19 08:36 Magnesium Hydroxide (Milk Of Magnesia) 30 ml DAILYPRN PRN PO CONSTIPATION 03/08/19 15:15 Nicotine (Nicoderm Cq 21mg) 1 patch DAILY TD 03/08/19 09:00 03/12/19 09:40 Olanzapine (ZyPREXA ZYDIS) 5 mg Q4HP PRN PO ANXIETY/AGITATION 03/08/19 22:00 Olanzapine (ZyPREXA) 5 mg QHS PO 03/09/19 21:00 03/11/19 20:24 Trazodone HCl (Desyrel) 25 mg QHSP PRN PO INSOMNIA 03/11/19 18:00 03/11/19 20:23 Trazodone HCl (Desyrel) 50 mg QHSP PRN PO INSOMNIA 03/08/19 15:15 03/08/19 21:56 DC Trazodone HCl (Desyrel) 200 mg QHSP PRN PO INSOMNIA 03/08/19 22:00 03/11/19 17:43 DC 03/10/19 20:04 Trazodone HCl (Desyrel) 200 mg QHSP PRN PO INSOMNIA 03/11/19 17:45 03/11/19 20:24 Allergies Coded Allergies: No Known Allergies (Unverified , 11/04/18) MARK LITTLE DO Mar 12, 2019 10:41
[2019-03-12 17:38] VITALS: BP_SYST 127; BP_SYST 131; BP_DIAS 58; BP_DIAS 76
[2019-03-12] MEDS: OLANZapine 5 MG TAB PO SCH (20:02)
[2019-03-12] MEDS: traZODone 25MG PER 1/2 TABLET PO PRN (20:03)
[2019-03-12] MEDS: traZODone 100 MG TAB PO PRN (20:04)
[2019-03-13 06:09] VITALS: BP 107/55
[2019-03-13] MEDS: NICOTINE 21MG/24HR 1 EA TRANSDERMAL TD SCH (09:00)
--- NOTE | 2019-03-13 12:46 | MHDSPDOC ---
[facility] Discharge Summary Discharge Summary DATE OF ADMISSION: Mar 08, 2019 at 15:11 DATE OF DISCHARGE: 03/13/19 Discharge Carmelo Sanchez MRN: N/A Date of : N/A Date of Service: 03/13/2019 Diagnoses Adjustment disorder with disruption of mood and conduct. Antisocial versus schizoid personality disorder. Highly concerned for malingering. History of Present Illness 23-year-old man with a reported history of psychosis with questionable psychotic symptoms presents to [facility] initially claiming "suicidal thoughts." He has been admitted in the past where it became quite questionable as to whether he had had illness. He has had multiple behavioral problems and thus was admitted out of an abundance of caution. Consultants Involved Hospitalist/PCP screening Treatment and Progress On The Unit Patient was admitted to the inpatient due to reported HI and resumed on his home medication. He adjusted well and although did seem to thrive on some attention seeking behaviors, otherwise he reported various auditory hallucinations, however, he demonstrate no objective signs or symptoms of psychosis and this subsequently resolved quite quickly without any intervention further increasing concern for malingering. The patient did well and his reported homicidal thoughts have resolved quickly with no adjustments in medications. He had had various behavior such as trying to create a sharpened object but had conspicuously left it specifically trying to put his nicotine patch with his name on it so that nurses would find it and attribute it him. However, after some boundary setting, this behavior ceased. He then did quite well, was amenable, friendly, much more respectful and continue in groups. He does have some interesting antisocial/schizoid personality traits, however, he was triaged back to the [facility] Discharge Assessment 23-year-old man with likely adjustment and a fairly strong concern for malingering as he claims auditory hallucinations. Demonstrates no objective signs. The patient demonstrates attention seeking behaviors that are highly responsive to boundary setting further increasing suspection for antisocial traids traits. Ideally, I would recommend that he testing as his symptoms are highly atypical consistent more with malingering. The patient declines further voluntary admission at this time and does not meet involuntary as he has been denying suicidal and homicidal since I started working with him, is friendly, amenable and respectful, thus is discharged in good migel to the [facility]. Mental Status Examination General: Well dressed with good hygiene Speech: Spontaneous and fluid Thought processes: Linear and logical MSK: Smooth and coordinated gait, no signs of tremors or involuntary orofacial movements Thought content: Future orientated Abstract reasoning, and computation: Intact Description of associations: Intact Description of abnormal or psychotic thoughts: Denies any suicidal or homicidal ideation. Denies any auditory or visual hallucinations. Does not appear to be responding to internal stimuli. Does not appear to be endorsing any bizarre or paranoid ideation. Judgment: fair Insight: fair Orientation: Alert and orientated 3 Cognition: Grossly normal Recent and remote memory: Intact Attention span and concentration: Intact Fund of knowledge: Adequate Mood: "okay" Affect: Euthymic with a full range Follow Up The social work team worked during the predischarge meeting in order to evaluate for further issues of lethality address them fully before discharge. They worked on safety planning with the patient's family members in order to ensure that the patient will have a safe and effective discharge. Time Spent The amount of time spent in the coordination of care for this patient was approximately 40 minutes. Monday Vital Signs/I&Os Vital Signs Date Time Temp Pulse Resp B/P (MAP) Pulse Ox O2 Delivery O2 Flow Rate FiO2 03/13/19 06:09 97.7 66 18 107/55 (72) 03/08/19 16:50 100 Medications Scheduled Cholecalciferol (Vitamin D3) (Vitamin D3) 1,000 Unit Capsule, 1,000 UNIT PO DA [place], (Reported) Clonidine HCl (Clonidine HCl) 0.1 Mg Tablet, 0.1 MG PO DAILY, (Reported) Melatonin (Melatonin) 3 Mg Tablet, 9 MG PO QHS, (Reported) Olanzapine (Olanzapine) 5 Mg Tablet, 5 MG PO DAILY, (Reported) Trazodone HCl (Trazodone HCl) 100 Mg Tablet, 200 MG PO QHS, (Reported) Venlafaxine HCl (Venlafaxine HCl ER) 75 Mg Cap.er.24h, 225 MG PO DAILY, (Reported) Scheduled PRN Hydroxyzine HCl (Hydroxyzine HCl) 50 Mg Tablet, 50 MG PO BID PRN for ANXIETY, (Reported) Allergies Coded Allergies: No Known Allergies (Unverified , 11/04/18) MARK LITTLE DO Mar 13, 2019 12:46
== END 2019-03-13 14:18 | disposition home or self-care (01) | DRG 882 ==
LOC: M ED 12:57 → M ED INP 15:11 → M PSY 16:45
PROVIDERS: ADMIT Psychiatry & Neurology Psychiatry; ATTEND Psychiatry & Neurology Addiction Medicine
DX: F43.25 Adjustment disorder with mixed disturbance of emotions and conduct (principal); R45.851 Suicidal ideations; R45.850 Homicidal ideations; F17.200 Nicotine dependence, unspecified, uncomplicated; G47.00 Insomnia, unspecified; R63.5 Abnormal weight gain; F60.2 Antisocial personality disorder; F60.1 Schizoid personality disorder; Z91.5 Personal history of self-harm; Z76.5 Malingerer [conscious simulation]; Z79.899 Other long term (current) drug therapy

== ENCOUNTER 2019-03-18 18:16 | Emergency (ER) | payer OTHER ==
[~2019-03-18] VITALS: Ht 190.5 cm; Wt 102.8 kg
[~2019-03-18 18:16] MED LIST changes: +CLON-412 PO; +HYDR50TA70 PO; +OLAN5TAB PO; +VENL75CA47 PO; +VITA100054 PO
[2019-03-18 19:20] LABS: HEMATOCRIT 43.5 % (42.0-52.0); HEMOGLOBIN 14.8 g/dl (13.5-17.5); MEAN CORPUSCULAR HEMOGLOBIN 29.7 pg (27.0-33.0); MEAN CORPUSCULAR VOLUME 87.3 fl (80.0-96.0); PLATELET COUNT, AUTOMATED 298 10^3/uL (150-450); RED BLOOD COUNT 4.98 10^6/uL (4.30-6.10); WHITE BLOOD COUNT 7.1 10^3/uL (4.0-10.0)
[2019-03-18 19:42] LABS: AMPHETAMINES LEVEL URINE NEGATIVE (NEGATIVE); BARBITURATES URINE NEGATIVE (NEGATIVE); BENZODIAZEPINES URINE NEGATIVE (NEGATIVE); CANNABINOIDS URINE NEGATIVE (NEGATIVE); COCAINE METABOLITE URINE NEGATIVE (NEGATIVE); METHADONE URINE NEGATIVE (NEGATIVE); OPIATES URINE NEGATIVE (NEGATIVE); PHENCYCLIDINE URINE NEGATIVE (NEGATIVE)
[2019-03-18 19:56] LABS: ACETAMINOPHEN LEVEL < 2.0 UG/ML (10.0-30.0); ALBUMIN 4.3 GM/DL (3.2-5.2); ALT/SGPT 36 U/L (12-78); BILIRUBIN,DIRECT 0.1 MG/DL (0.0-0.2); BILIRUBIN,TOTAL 0.1 MG/DL (0.2-1.0); BLOOD UREA NITROGEN 9 MG/DL (7-18); CALCIUM LEVEL 9.4 MG/DL (8.5-10.1); CARBON DIOXIDE LEVEL 31 MEQ/L (21-32); CHLORIDE LEVEL 103 MEQ/L (98-107); CREATININE FOR GFR 0.99 MG/DL (0.70-1.30); ETHYL ALCOHOL (ETHANOL) < 0.003 % (0.000-0.010); GLOMERULAR FILTRATION RATE > 60.0 (>60); GLUCOSE, FASTING 100 MG/DL (70-100); POTASSIUM SERUM 3.8 MEQ/L (3.5-5.1); SALICYLATE LEVEL < 1.7 MG/DL (5.0-30.0); SODIUM LEVEL 138 MEQ/L (136-145); TOTAL PROTEIN 7.8 GM/DL (6.4-8.2)
[2019-03-18] MEDS ORDERED: OLAN2.5T25 PO (21:18)
[2019-03-18] MEDS ORDERED: traZODone 100 MG TAB PO ONE (22:30)
[2019-03-18] MEDS ORDERED: OLANZapine 2.5MG TABLET PO ONE (22:30)
[2019-03-18] MEDS ORDERED: cloNIDine 0.1 MG TAB PO ONE (22:30)
[2019-03-18 22:58] VITALS: BP 128/68
[2019-03-19 03:06] VITALS: BP 114/57
--- NOTE | 2019-03-20 14:47 | ECGEPIP ---
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
== END 2019-03-19 03:09 ==
LOC: M ED 18:16
DX: R45.851 Suicidal ideations (principal); R45.850 Homicidal ideations; Z79.899 Other long term (current) drug therapy
CPT/HCPCS: 80048; 80076; 80307; 84443; 85027; 93005; 99285; G0480